=== PATIENT | male | born 1960 | race Caucasian/White ===

== ENCOUNTER 2020-01-14 21:12 | Emergency (ER) | payer MEDICARE, MEDICAID, SELFPAY ==
--- NOTE | ~2020-01-14 | CT_ITS ---
EXAMINATION: CT abd pelvis lumbar wo con DATE: 01/15/2020 01:07 INDICATION: Hematuria. Back pain. TECHNIQUE: Computed tomography (CT) of the abdomen and pelvis was performed without intravenous contr ast. Automated exposure control and iterative reconstruction technique were employed. The dose-length product was 908.18 mGy-cm. COMPARISON: 04/14/2019 FINDINGS: Abdomen/pelvis: Minimal dependent atelectasis in the bilateral lower lobes. Heart size is normal. Atherosclerotic cor onary artery calcifications. No pericardial or pleural effusion. Liver, gallbladder, spleen, pancreas and bilateral adrenal glands are normal. Kidneys and ureters are normal with no urolithiasis, hydrou reteronephrosis or perinephric/ureteral stranding. There are a few scattered colonic diverticula with out adjacent inflammatory change to suggest diverticulitis. No abnormal bowel wall thickening or obst ruction. Large amount of stool in the proximal colon. Appendix is normal. Bladder is normal. There is calcified atherosclerosis of the aorta and many of the other arteries. No free intraperitoneal gas o r fluid. No pathologically enlarged abdominal or pelvic lymphadenopathy. Lumbar spine: Alignment is normal. Chronic L2 compression fracture with 20% anterior vertebral body height loss. Ch ronic large Schmorl's node along the superior endplate of L4. Inferior endplate compression fracture at L5 with 40% central vertebral body height loss which is new since the prior study. There is a rela tively recent-appearing cortical discontinuity with mild step off along the anterior vertebral body s uggesting this is relatively recent. Moderate disc height loss with vacuum phenomena at L3-L4. Small amount of vacuum phenomena at the L2-L3 and L5-S1 disc spaces. There are disc bulges at several level s resulting in central canal stenosis most prominent at L2-L3 and L3-L4 and L4-L5 where it is of mode rate severity. Moderate left and severe right facet osteoarthritis at L5-S1 resulting in mild left an d moderate right neural foraminal stenosis. Mild to moderate facet osteoarthritis with moderate neura l from stenosis on the right at L4-L5. Mild facet osteoarthritis and neural foraminal stenosis at mul tiple additional levels in the more cephalad lumbar spine on both the left and right. IMPRESSION: 1. Age-indeterminate relatively recent-appearing L5 inferior endplate compression fracture with 40% c entral vertebral body height loss. 2. No urolithiasis or acute intra-abdominal/pelvic process. Reviewed, dictated and finalized at location A. IMPRESSION: 1. Age-indeterminate relatively recent-appearing L5 inferior endplate compressi on fracture with 40% central vertebral body height loss. 2. No urolithiasis or acute intra-abdominal/pelvic process.
[2020-01-14 21:31] VITALS: BP 120/94; PULSE 89; RESP 18; TEMP 37.3; O2SAT 97
--- NOTE | 2020-01-14 22:20 | ED.BACK ---
HPI - Back Pain/Injury General Chief Complaint: Back Pain/Injury Stated Complaint: back pain Time Seen by Provider: 01/14/20 21:57 Source: patient Mode of arrival: EMS Limitations: no limitations History of Present Illness HPI Narrative: This patient is a 59 year old male who present for evaluation of mid back pain x 2 days. He states he has constant pain that is nonradiating. He takes hydrocodone 10 mg three times a day. He took his pain medication prior to arrival without improvement. He denies nausea, vomiting or abdominal pain. He denies shortness of breath or fever. He states this pain does feel similar to his chronic pain. MD elicited complaint: back pain Pertinent past history: prior back pain Timing: constant Pain scale (0-10): 10 Similar Symptoms Previously: Yes Radiation: none Exacerbating factors: movement Relieving factors: none Related Data Allergies Allergy/AdvReac Type Severity Reaction Status Date / Time No Known Allergies Allergy Unknown Unverified 04/14/19 13:37 Review of Systems Review of Systems: All systems reviewed & are unremarkable except as noted in HPI and below Constitutional: Constitutional: Denies chills and Denies fever(s) Respiratory: Respiratory: Denies cough and Denies dyspnea Gastrointestinal: Gastrointestinal: Denies abdominal pain, Reports nausea and Denies vomiting Genitourinary: Genitourinary: Denies hematuria, Denies oliguria and Denies dysuria Musculoskeletal: Musculoskeletal: Reports back pain Neurologic: Denies headache(s), Denies focal weakness, Reports numbness (chronic ) and Denies weakness PMFSH Past Medical History Medical History (Updated 01/15/20 @ 03:33 by Tonya Hodge MD) Bipolar disorder Chronic back pain Rheumatoid arthritis Family History Family History (Updated 06/17/14 @ 11:12 by DOCTOR UNKNOWN) Other Diabetes mellitus Family history of malignant neoplasm Social History Social History Smoking status: Former smoker Smoking end date: 07/04/90 Alcohol intake: never Gender identity (if verbalized by the patient): Male Exam Narrative: Exam Narrative: GENERAL: well-nourished, and in mild distress to to pain. HEAD: Normocephalic, atraumatic EYES: PERRLA and EOMI, conjunctiva clear without discharge THROAT:Mucous membranes moist, Oropharynx normal without erythema, exudate, peritonsillar swelling or fluctuance NECK: Supple, without lymphadenopathy or mass RESPIRATORY: No respiratory distress, Airway patent, Respirations non-labored, Clear to auscultation without rales, rhonchi or wheeze HEART: Regular rate and rhythm. No murmur heard. Normal peripheral pulses. ABDOMEN: Soft, nontender, nondistended, normal active bowel sounds. No masses. No rebound or guarding, No organomegaly. EXTREMITIES: No edema, normal strength with full range of motion. SKIN: Warm, dry, normal color without rash NEURO: Alert and oriented x3. CN 2-12 grossly intact. No focal deficits. PSYCH: Normal mood and affect. Course Vital Signs Vital signs: Vital Signs Temperature 99.1 F 01/14/20 21:31 Pulse Rate 89 01/14/20 21:31 Respiratory Rate 18 01/14/20 21:31 Blood Pressure 120/94 H 01/14/20 21:31 Pulse Oximetry 97 01/14/20 21:31 Temperature 98 F 01/14/20 23:12 Pulse Rate 80 01/15/20 04:03 Respiratory Rate 18 01/15/20 04:03 Blood Pressure 142/88 H 01/15/20 04:03 Pulse Oximetry 99 01/15/20 04:03 MDM - Back Pain/Injury Differential Diagnosis Differential diagnosis: Likely lumbar radiculopathy, sciatica, strain of lumbar region, renal colic, pyelonephritis, AAA and discitis Lab Data Attestation: I reviewed the patient's lab results. Result diagrams: 01/14/20 22:30 01/14/20 22:30 Labs: Lab Results 01/14/20 01/14/20 01/14/20 Range/Units 22:30 22:30 22:30 WBC 14.5 H (4.5-10.0) K/mm3 RBC 4.51 L (4.6-6.20) M/mm3 Hgb 14.9 (14.0-18.0) g/dL Hct 42.5
[2020-01-14] MEDS: ONDANSETRON HCL ODT 4 MG TABLET PO (22:24)
[2020-01-14 22:36] LABS: Basophils Percent Auto 0.2 % (0.2-1.2); Eosinophils Absolute Auto 0.1 K/mm3 (0-0.3); Eosinophils Percent Auto 0.3 % (0-4.4); Hematocrit 42.5 % (42.0-52.0); Hemoglobin 14.9 g/dL (14.0-18.0); Immature Granulocyte Absolute 0.18 K/mm3 (0.00-0.031); Immature Granulocyte Percent A 1.2 % (0-0.5); Lymphocytes Absolute Auto 1.86 K/mm3 (0.9-3.2); Lymphocytes Percent Auto 12.8 % (18.3-44.2); Mean Corpuscular HGB Conc 35.1 g/dl (32-36); Mean Corpuscular Volume 94.2 fl (80-100); Mean Platelet Volume 10.2 fl (7.4-10.4); Monocytes Absolute Auto 1.2 K/mm3 (0.1-0.6); Monocytes Percent Auto 8.1 % (2.6-8.5); Neutrophils Absolute Auto 11.2 K/mm3 (1.3-6.7); Neutrophils Percent Auto 77.4 % (45.5-73.1); Platelet Count Result 196 k/mm3 (150-375); Red Blood Count 4.51 M/mm3 (4.6-6.20); Red Cell Distribution Width 12.1 % (11.5-14.5); White Blood Count 14.5 K/mm3 (4.5-10.0)
[2020-01-14 23:06] LABS: Lipase 12 U/L (23-300)
[2020-01-14 23:08] LABS: Alanine Aminotransferase 27 U/L (4-50); Albumin Level 4.3 g/dL (3.5-5.1); Alkaline Phosphatase 73 U/L (38-126); Aspartate Amino Transferase 45 U/L (17-59); Blood Urea Nitrogen 20 mg/dL (9-20); Calcium 9.4 mg/dL (8.4-10.2); Carbon Dioxide 24 mmol/L (22-30); Chloride 103 mmol/L (98-107); Estimated Glomerular Filt Rate > 60; Glucose 76 mg/dL (75-110); Potassium 3.8 mmol/L (3.4-5.0); Sodium 136 mmol/L (137-145)
[2020-01-14 23:12] VITALS: BP 123/92; PULSE 100; RESP 16; TEMP 36.6; O2SAT 96
[2020-01-14 23:52] LABS: Add Urine Microscopic? YES; Appearance Urine Clear (Clear); Bacteria Urine Trace /hpf; Bilirubin Urine 1+ (Negative); Blood Urine 2+ (Negative); Glucose Urine UA Negative (Negative); Hyaline Casts Urine 15-19 /lpf; Ketones Urine 1+ mg/dL (Negative); Leukocyte Esterase Ur Negative LEU/UL (Negative); Mucus Urine Heavy /lpf; Nitrate Urine Negative (Negative); Protein Urine 1+ mg/dL (Negative); RBC Urine 21-50 /hpf (0-2); Squamous Epithelial Cell Urine Occasional /hpf (Few); Urobilinogen Urine Negative mg/dL (<2.0)
[2020-01-14 23:55] LABS: Color Urine Dark Yellow (Yellow); Specific Grav Ur 1.033 (1.001-1.035)
[2020-01-15 01:30] VITALS: BP 126/72
[2020-01-15] MEDS: KETOROLAC 30 MG/ML VIAL (*BKC) IV PUSH (02:41)
[2020-01-15 02:43] VITALS: BP 144/110; PULSE 107; RESP 22; O2SAT 97
[2020-01-15 04:03] VITALS: BP 142/88; PULSE 80; RESP 18; O2SAT 99
== END 2020-01-15 04:04 | disposition home or self-care (01) ==
PROVIDERS: Emergency Provider General Practice; PCP Family Medicine
DX: G89.29 Other chronic pain (principal); M06.9 Rheumatoid arthritis, unspecified; Z87.891 Personal history of nicotine dependence; M54.5 Low back pain
CPT/HCPCS: 36415; 72133; 74176; 80053; 81001; 83690; 85025; 96372; 96374; 99284; A9270; J1170; J1885

== ENCOUNTER 2020-01-16 07:43 | Inpatient (IN) | payer MEDICARE, SELFPAY ==
[2020-01-16] VITALS (9 sets, daily range): BP systolic 119–159; BP diastolic 66–110; PULSE 88–132; RESP 18–27; TEMP 36.2–38.1; O2SAT 94–99
--- NOTE | ~2020-01-16 | CT_ITS ---
EXAMINATION: CT brain wo con DATE: 01/16/2020 11:08 INDICATION: Altered mental status TECHNIQUE: Computed tomography (CT) of the head was performed without intravenous contrast. The dose- length product was 681.00 mGy-cm. The mA was adjusted according to patient size. Iterative reconstruc tion technique was employed. COMPARISON: CT dated 04/09/2019 FINDINGS: Study limited by motion artifact. Mild atrophy. There are scattered mild periventricular an d subcortical white matter changes, most likely related to small vessel ischemic disease (microangiop athy). No ventriculomegaly or midline shift. Basilar cisterns patent. Paranasal sinuses are unremarka ble. IMPRESSION: 1. No acute intracranial abnormality. Limited study. Reviewed, dictated and finalized at location B.
--- NOTE | ~2020-01-16 | XR_ITS ---
XR chest 1V portable 01/16/2020 10:40 Indication: Transient alteration of awareness Procedure: AP portable chest Comparison: 04/14/2019 Findings: Crowding of the pulmonary vasculature. No focal pneumonia, edema or effusion. No acute osse ous abnormality. Heart size normal for technique. There is ectasia of the aorta. Impression: 1: No acute cardiopulmonary disease. Reviewed, dictated and finalized at location B. Impression: 1: No acute cardiopulmonary disease.
--- NOTE | ~2020-01-16 | US_ITS ---
US right upper quadrant INDICATION: Severe back pain. Elevated liver function tests. PROCEDURE: Realtime right upper abdominal ultrasound. COMPARISON: CT dated 01/15/2020 FINDINGS: The pancreas is normal without focal mass or pancreatic ductal dilation. Liver echotexture is normal without focal mass or intrahepatic biliary dilatation. There is normal directional flow i n the portal vein. There is gallbladder sludge with mild gallbladder wall thickening. Common bile duct measures 4.5 mm. No sonographic Garcia's sign. IMPRESSION: 1: Gallbladder sludge with mild gallbladder wall thickening. Consider acalculous cholecystitis. Reviewed, dictated and finalized at location B. IMPRESSION: 1: Gallbladder sludge with mild gallbladder wall thickening. Consider acalculou s cholecystitis.
--- NOTE | 2020-01-16 07:46 | ECG_ITS ---
Measurements Intervals [place] Rate: 127 P: 85 WV: 133 QRS: -66 QRSD: 73 T: 66 QT: 332 QTc: 483 Interpretive Statements SINUS TACHYCARDIA LEFT ANTERIOR FASCICULAR BLOCK BORDERLINE ST-T WAVE ABNORMALITY- HIGH LATERAL LEADS BASELINE ARTIFACT- I, III, AVR, AVL, AVF, V1-V6 ABNORMAL ECG Electronically Signed On 01-16-2020 12:10:22 CDT by Charanjit Leslie D.O.
--- NOTE | 2020-01-16 07:52 | ED.AMS ---
HPI - Altered Mental Status General Chief Complaint: Altered Mental Status Stated Complaint: AMS Source: RN notes reviewed and old records reviewed History of Present Illness HPI narrative: Patient presents emergency department from home via EMS for altered mental status. History is per family that is present. Per the family the patient has a history of bipolar and rheumatoid arthritis but they do not believe that he has been taking his bipolar medication. They state that the patient been seen in the emergency department 2 days ago for back pain and then walked home at that time. States that they come over and the patient just been sitting outside of his house and they had had to break into his house to unlock the doors to get the patient side. States they got the patient inside and came back to check on him today and found him lying on the floor that called EMS. Patient is able to tell me his name but gives no other history. He has no complaints at this time. When EMS initially arrived she was noted of blood sugar 59 and given glucagon with sugars improved. No recent illness per the family. Related Data Home Medications Medication Instructions Recorded Confirmed acetaminophen-codeine 1 tablet PO PRN PRN 01/16/20 01/16/20 aripiprazole 2 mg PO HS 01/16/20 aripiprazole 5 mg PO HS 01/16/20 bupropion HCl 300 mg PO DAILY 01/16/20 hydrocodone-acetaminophen 1 tablet PO PRN PRN 01/16/20 lamotrigine 200 mg PO BID 01/16/20 01/16/20 pantoprazole [Protonix] 40 mg PO QAM 01/16/20 01/16/20 quetiapine 25 mg PO HS 01/16/20 01/16/20 Allergies Allergy/AdvReac Type Severity Reaction Status Date / Time No Known Allergies Allergy Unknown Verified 01/16/20 08:11 Review of Systems Review of Systems: Narrative: Gen.: Denies fevers or chills Eyes: Denies eye pain or visual change ENT: Denies congestion Respiratory: Denies shortness of breath or cough CV: Denies chest pain or palpitations GI: Denies abdominal pain nausea, emesis or diarrhea denies burning, urgency, frequency or hematuria Musculoskeletal: Denies back pain or muscle pain Neuro: See HPI Skin: Denies rash Except as documented, all other systems reviewed and negative PMFSH Past Medical History Medical History Bipolar disorder Chronic back pain Rheumatoid arthritis Family History Family History (Updated 06/17/14 @ 11:12 by DOCTOR UNKNOWN) Other Diabetes mellitus Family history of malignant neoplasm Social History Social History Smoking status: Never smoker Second hand tobacco smoke exposure: No Smoking end date: 07/04/90 Alcohol intake: unknown Substance use: unknown Gender identity (if verbalized by the patient): Male Sexual Orientation (if Verbalized by the Patient): Straight or Heterosexual Spiritual care concerns: No Exam Narrative: Exam Narrative: APPEARANCE: No acute distress, nontoxic, resting in bed EYES: PERRL HEENT: Normocephalic, atraumatic, OMM Neck: Supple, full range of motion without pain, no managements RESPIRATORY: No respiratory distress Clear to auscultation bilaterally with no rhonchi wheezing or rales. CARDIOVASCULAR: Regular rate and rhythm without murmurs rubs or gallops. ABDOMINAL: Soft, nontender, nondistended, no rebound or guarding MUSCULOSKELETAl: Moves all extremities. No clubbing, cyanosis or edema. Numerous areas of ecchymosis healing in different phrases on bilateral lower extremities NEURO: Awake and alert x 1. Following commands, speech normal, no focal deficits SKIN:: Warm, dry. No rashes lesions or abrasions Course Course Emergency Course: Reviewed old records. Patient had similar episode 2018 at that time he been admitted baclofen and pain medications have been held with improvement of his neurologic status. Patient continues to attempt to get up and out of bed. Initially given Ativan wi
[2020-01-16 08:06] LABS: Basophils Absolute Auto 0.1 K/mm3 (0.0-0.1); Basophils Percent Auto 0.4 % (0.2-1.2); Eosinophils Percent Auto 0.1 % (0-4.4); Hematocrit 47.5 % (42.0-52.0); Hemoglobin 16.7 g/dL (14.0-18.0); Immature Granulocyte Percent A 0.6 % (0-0.5); Lymphocytes Absolute Auto 0.87 K/mm3 (0.9-3.2); Lymphocytes Percent Auto 5.5 % (18.3-44.2); Mean Corpuscular HGB Conc 35.2 g/dl (32-36); Mean Corpuscular Hemoglobin 33.1 pg (26-34); Mean Corpuscular Volume 94.2 fl (80-100); Mean Platelet Volume 11.2 fl (7.4-10.4); Monocytes Absolute Auto 1.5 K/mm3 (0.1-0.6); Monocytes Percent Auto 9.7 % (2.6-8.5); Neutrophils Absolute Auto 13.2 K/mm3 (1.3-6.7); Neutrophils Percent Auto 83.7 % (45.5-73.1); Platelet Count Result 216 k/mm3 (150-375); Red Blood Count 5.04 M/mm3 (4.6-6.20); Red Cell Distribution Width 12.3 % (11.5-14.5); White Blood Count 15.8 K/mm3 (4.5-10.0)
[2020-01-16 08:17] LABS: INR 1.2; Partial Thromboplastin Time 25.2 SECONDS (22.3-36.8); Prothrombin Time 14.5 Seconds (11.1-14.7)
[2020-01-16 08:19] LABS: Alanine Aminotransferase 49 U/L (4-50); Albumin Level 4.7 g/dL (3.5-5.1); Alkaline Phosphatase 88 U/L (38-126); Aspartate Amino Transferase 106 U/L (17-59); Bilirubin,Total 1.7 mg/dL (0.2-1.3); Blood Urea Nitrogen 39 mg/dL (9-20); Calcium 10.1 mg/dL (8.4-10.2); Carbon Dioxide 19 mmol/L (22-30); Chloride 111 mmol/L (98-107); Estimated Glomerular Filt Rate 52; Glucose 112 mg/dL (75-110); Potassium 3.8 mmol/L (3.4-5.0); Sodium 147 mmol/L (137-145)
--- NOTE | 2020-01-16 08:29 | PC.NURSE ---
Per EDP give 1MG Ativan IVP due to pt trying to get up from stretcher, uncooperative, kicking in air, rolling. Unable to obtain EKG at this time. Pt pulling off tele leads. Cont to thrash in stretcher. Sitter at bedside to ensure pt safety.
--- NOTE | 2020-01-16 08:30 | PC.NURSE ---
Unable to initiate ordered NS at this time, pt pulling at tubes, leads. Pt given medication IVP for agitation.
[2020-01-16 08:41] LABS: Creatine Kinase 2873 U/L (55-170)
[2020-01-16 08:59] LABS: Add Urine Microscopic? YES; Appearance Urine Cloudy (Clear); Bacteria Urine 4+ /hpf; Bilirubin Urine 1+ (Negative); Blood Urine 3+ (Negative); Color Urine Amber (Yellow); Glucose Urine UA Negative (Negative); Hyaline Casts Urine 15-19 /lpf; Ketones Urine 2+ mg/dL (Negative); Leukocyte Esterase Ur Negative LEU/UL (Negative); Mucus Urine Heavy /lpf; Nitrate Urine Negative (Negative); Protein Urine 3+ mg/dL (Negative); Specific Grav Ur 1.027 (1.001-1.035); Squamous Epithelial Cell Urine Rare /hpf (Few); WBC Urine 0-3 /hpf
--- NOTE | 2020-01-16 09:06 | PC.NURSE ---
Lab in room for blood draw.
[2020-01-16 09:09] LABS: Ethanol < 10 mg/dL (<10)
--- NOTE | 2020-01-16 09:09 | PC.NURSE ---
Pt continues to trash in stretcher, unable to redirect. Sitter at bedside.
[2020-01-16 09:26] LABS: Amphetamine Screen Urine Negative (Negative); Barbiturate Screen Urine Negative (Negative); Benzodiazepines Screen Urine Positive (Negative); Cannabinoid Screen Urine Positive (Negative); Cocaine Screen Urine Negative (Negative); Methadone Screen Urine Negative (Negative); Opiate Screen Urine Positive (Negative); Phencyclidine Screen Urine Negative (Negative)
[2020-01-16 09:30] LABS: Lactic Acid Reflex 2.2 mmol/L (0.7-2.1)
[2020-01-16] MEDS: HALOPERIDOL LACTATE 5 MG/ML VIAL IM (09:36)
[2020-01-16] MEDS: SODIUM CHLORIDE 0.9% IV 1,000 ML 999 ML IV CONT ×2 (09:38)
--- NOTE | 2020-01-16 09:38 | PC.NURSE ---
Pt thrashing and removed IV in R wrist, pt bleeding, moving in sheets, uncooperative, pulling staff, attempting to bite, restless. Pt held down by cleaner wall and two tech staff while this RN placed 18 L forearm w/ fluids infusing. Pt gown changed, sheets changed, lights dimmed. Sitter remains at bedside.
--- NOTE | 2020-01-16 10:16 | PC.NURSE ---
Pt continues to thrash in stretcher, gown put on mult times, put depends on due to other depends sliding off (dry). Pt re oriented. Pt continues to grab and pick at staff. Repositioned, given 1 Lorazepam IVP per [facility] EDP. Fluids cont to infuse.
--- NOTE | 2020-01-16 11:07 | PC.NURSE ---
Pt taken to CT scan via stretcher w/ RN, Tech, and two it technical architect in assist. Pt uncooperative, tearing off gown, continues to be restless and trash in stretcher.
[2020-01-16 12:14] LABS: Reflex Lactic Acid Yes or No Add Lactic
--- NOTE | 2020-01-16 12:56 | PC.NURSE ---
Pt cont. to get out of bed, pt shouting no, please. Pt held down onto stretcher, cont. redirection. Pt tries to climb out of bed, sticks legs in side rails. Repositioned. New gown placed. Lights dimmed. Sitter at bedside.
[2020-01-16 13:21] LABS: Acetaminophen < 10 ug/mL (10-30)
[2020-01-16 14:14] LABS: Lactic Acid 1.2 mmol/L (0.7-2.1)
[2020-01-16] MEDS: SODIUM BICARBONATE 8.4% 100 MEQ in DEXTROSE 5% 1,000 ML 1,000 ML 150 ML IV CONT (17:49)
[2020-01-16 18:47] LABS: Blood Urea Nitrogen 32 mg/dL (9-20); Calcium 8.7 mg/dL (8.4-10.2); Carbon Dioxide 16 mmol/L (22-30); Chloride 117 mmol/L (98-107); Estimated CRCL calculation 69 ml/min; Estimated Glomerular Filt Rate > 60; Glucose 104 mg/dL (75-110); Magnesium 2.3 mg/dL (1.6-2.3); Potassium 3.9 mmol/L (3.4-5.0); Sodium 148 mmol/L (137-145)
[2020-01-16 19:03] LABS: Creatine Kinase 8382 U/L (55-170)
--- NOTE | 2020-01-16 20:49 | PM.IMHP ---
H&P: HPI History of Present Illness Chief complaint: Fall, altered mental status Narrative: Date and time of patient contact: 01/16/2020 at 9:00 p.m. Kevin Hernandez is a 59 year old male with a past medical history of bipolar disorder, peripheral neuropathy and rheumatoid arthritis who presented to the ER via EMS from home for altered mental status. Source of information is past medical records and ER records. The patient's family reported to the ER staff that they do not believe that he has been taking his bipolar medication. They state that the patient been seen in the emergency department 2 days ago for back pain and was diagnosed with age indeterminate relatively recent appearing L5 anterior endplate compression fracture with 40% central vertebral body loss. He was discharged from the ER and then walked home at that time. The family had went over to his house and found him sitting outside. They had to break into his house to get him inside. They left him at home alone when they came back to check on him on the they found him lying on the floor that called EMS. The patient was able to status name both in the ER and at the time of my evaluation. Otherwise he could give me no history except for he kept asking for his Klonopin. The patient denies having any pain. The patient is covered and multiple skin tears. He was very agitated at the time of my evaluation and flipping around in the bed. The patient's stool smeared all over his bed. Staff was not able to redirect the patient. The patient had multiple areas of bruising/skin changes. The skin lesions appear to be all in the same stage of healing which would be unusual for simple bruising. Patient has been afebrile since presentation When EMS initially arrived she was noted of blood sugar 59 and given glucagon with sugars improved. No recent illness per the family. Review of Systems Review of Systems: ROS unobtainable: Yes unobtainable due to medical condition and unobtainable due to mental status [facility] Past Medical History Medical History (Updated 01/17/20 @ 04:52 by Radha Brown DO) Bipolar disorder Chronic back pain Hyperlipidemia L1 vertebral fracture April 2019 Peripheral neuropathy PTSD (post-traumatic stress disorder) Rheumatoid arthritis Surgical History Surgical History (Updated 01/16/20 @ 20:53 by Radha Brown DO) History of facial surgery History of herniorrhaphy Family History Family History (Updated 01/16/20 @ 20:55 by Radha Brown DO) Mother Dementia Acute myocardial infarction Sibling Diabetes mellitus Brother and sister Social History Social History (Updated 01/16/20 @ 20:57 by Radha Brown DO) Smoking status: Former smoker Smoking end date: 07/04/90 Alcohol intake: current Alcohol use details: Occasional use of alcohol per prior H&P. Substance use: current Substance use type: marijuana and opiates Living arrangements: alone Gender identity (if verbalized by the patient): Male Sexual Orientation (if Verbalized by the Patient): Straight or Heterosexual Spiritual care concerns: No Meds Home Medications and Allergies Home Medications Medication Instructions Recorded Confirmed Type acetaminophen-codeine 1 tablet PO PRN PRN 01/16/20 01/16/20 History aripiprazole 2 mg PO HS 01/16/20 History aripiprazole 5 mg PO HS 01/16/20 History bupropion HCl 300 mg PO DAILY 01/16/20 History hydrocodone-acetaminophen 1 tablet PO PRN PRN 01/16/20 History lamotrigine 200 mg PO BID 01/16/20 01/16/20 History pantoprazole [Protonix] 40 mg PO QAM 01/16/20 01/16/20 History quetiapine 25 mg PO HS 01/16/20 01/16/20 History Allergies Allergy/AdvReac Type Severity Reaction Status Date / Time No Known Allergies Allergy Unknown Verified 01/16/20 08:11 Vital Signs Vital Signs - 24 hr 01/16/20 08:18 01/16/20 08:58 01/16/20 10:17 Temperature 97.1 F L Pulse Rate 132 H 109 H 117 H
[2020-01-16] MEDS: OLANZapine 10 MG INJ VIAL 5 MG IM (21:59)
[2020-01-17 01:59] LABS: Glucose Point of Care 106 (65-105)
[2020-01-17 06:00] VITALS: BP 142/86; PULSE 103; RESP 20; TEMP 37.2; O2SAT 98
[2020-01-17 06:33] LABS: Basophils Absolute Auto 0.1 K/mm3 (0.0-0.1); Basophils Percent Auto 0.4 % (0.2-1.2); Eosinophils Percent Auto 0.1 % (0-4.4); Hematocrit 41.3 % (42.0-52.0); Hemoglobin 14.4 g/dL (14.0-18.0); Immature Granulocyte Absolute 0.08 K/mm3 (0.00-0.031); Immature Granulocyte Percent A 0.6 % (0-0.5); Lymphocytes Absolute Auto 0.91 K/mm3 (0.9-3.2); Lymphocytes Percent Auto 7.1 % (18.3-44.2); Mean Corpuscular HGB Conc 34.9 g/dl (32-36); Mean Corpuscular Hemoglobin 32.7 pg (26-34); Mean Corpuscular Volume 93.7 fl (80-100); Monocytes Absolute Auto 1.1 K/mm3 (0.1-0.6); Monocytes Percent Auto 8.4 % (2.6-8.5); Neutrophils Absolute Auto 10.8 K/mm3 (1.3-6.7); Neutrophils Percent Auto 83.4 % (45.5-73.1); Platelet Count Result 193 k/mm3 (150-375); Red Blood Count 4.41 M/mm3 (4.6-6.20); Red Cell Distribution Width 12.1 % (11.5-14.5); White Blood Count 12.9 K/mm3 (4.5-10.0)
[2020-01-17 06:49] LABS: Alanine Aminotransferase 92 U/L (4-50); Albumin Level 3.9 g/dL (3.5-5.1); Alkaline Phosphatase 66 U/L (38-126); Aspartate Amino Transferase 295 U/L (17-59); Bilirubin,Total 1.6 mg/dL (0.2-1.3); Blood Urea Nitrogen 31 mg/dL (9-20); Carbon Dioxide 24 mmol/L (22-30); Chloride 114 mmol/L (98-107); Estimated CRCL calculation 84 ml/min; Estimated Glomerular Filt Rate > 60; Glucose 117 mg/dL (75-110); Potassium 3.8 mmol/L (3.4-5.0); Sodium 148 mmol/L (137-145)
[2020-01-17 08:05] LABS: Creatine Kinase 14333 U/L (55-170)
[2020-01-17 09:33] LABS: HAV RESULT Negative (Negative); Hepatitis B Core IgM Result Negative (Negative); Hepatitis B Surface Antigen Negative (Negative)
[2020-01-17 09:43] LABS: Hepatitis C Virus Antibody Negative (Negative)
--- NOTE | 2020-01-17 10:18 | PC.NURSE ---
Contacted Joesph Saucedo of patient in pain. Earline to look at patient meds.
[2020-01-17] MEDS: buPROPion HCL XL (24 HR) 150 MG TABCR 300 MG PO (12:44)
[2020-01-17] MEDS: PANTOPRAZOLE 40 MG TABLET PO (12:44)
[2020-01-17 14:00] VITALS: BP 137/90; PULSE 90; RESP 18; TEMP 36.7; O2SAT 98
[2020-01-17 15:03] LABS: Glucose Point of Care 103 (65-105)
--- NOTE | 2020-01-17 16:30 | PM.IMPN ---
Progress Note: A&P Assessment and Plan (1) Acute metabolic encephalopathy: Code(s): G93.41 - Metabolic encephalopathy Status: Acute Assessment and Plan: Acute metabolic encephalopathy complicating the patient's underlying bipolar disorder with likely non adherence to medical therapy. Patient appears to have improved in his orientation today. Fever his resolved. UTI possibly causing AMS as well; UCx pending. Patient does have a mildly elevated temperature of 100.5?. He has 4+ bacteria in his urine. Will continue to treat empirically with Rocephin pending cultures Patient passed his swallow study; resume home medications Monitor (2) Acute renal failure: Code(s): N17.9 - Acute kidney failure, unspecified Status: Acute Assessment and Plan: Will continue bicarb drip. This has improved to Cr of 0.80 this morning Repeat BMP this evening then tomorrow Monitor urine output. (3) Rhabdomyolysis: Code(s): M62.82 - Rhabdomyolysis Status: Acute Assessment and Plan: CK has increased this morning to >14k Continue bicarb drip; consider increasing Will monitor serial CK values. (4) Acute hypernatremia: Code(s): E87.0 - Hyperosmolality and hypernatremia Status: Acute Assessment and Plan: Likely due to hypovolemia. Serial BMPs have been ordered. Na stable at 148 Patient is on a bicarb drip. Serial BMPs have been ordered. Monitor (5) Metabolic acidosis: Code(s): E87.2 - Acidosis Status: Acute Assessment and Plan: Improving. Likely due to rhabdomyolysis. Monitor lab values (6) Bipolar disorder: Code(s): F31.9 - Bipolar disorder, unspecified Status: Acute Assessment and Plan: With possible acute manic phase. Home meds have been resumed Patient asking about a home Klonopin, will have nursing check this home medication Subjective Date/time seen: 01/17/20 16:30 Interval history: Patient is a 59 yo M with history of bipolar disorder, peripheral neuropathy and rheumatoid arthritis who is here for evaluation and treatment of AMS, LILIANA, and rhabdomyolysis. Patient states his main complaint is his chronic back pain. Patient also notes some muscle aches and pains as well. He is A&Ox3 for me and is able to recount what brought him to the hospital; confused at times. Tells me he was hurting and and laid down on the ground for awhile . He reports some dark urine. No other complaints at this time. Denies f/c/s, headaches, dizziness, lightheadedness, cp/palpitations, sob/cough, n/v/d/c, abd pain, changes in BMs, dysuria, hematuria, calf pain/swelling. Review of Systems Review of Systems: All systems reviewed & are unremarkable except as noted in HPI and below Exam Narrative: Exam Narrative: Patient lying supine in bed at time of visit Const: General: cooperative, comfortable, no acute distress, well developed, alert and awake Nutritional Appearance: well nourished Orientation/consciousness: patient oriented x3 HENMT: Head: normocephalic and atraumatic General nose exam: Normal nares present Face and sinus: face symmetric Eyes: General: appearance normal, both eyes and all related structures EOM: EOMs intact bilaterally Neck: Neck: trachea midline and supple Resp: Effort & Inspection: normal respiratory effort Auscultation: clear to auscultation bilaterally Cardio: Rate: regular rate Rhythm: regular rhythm Heart sounds: no murmurs GI: Inspection: non-distended GI Palp: No abdominal tenderness and Yes Soft to palpation Auscultation: normal bowel sounds and Hypoactive bowel sounds present Skin: Other: Multiple ecchymoses noted over b/l UE/LE Neuro: General: patient oriented x3, moves al
[2020-01-17 17:47] LABS: Blood Urea Nitrogen 26 mg/dL (9-20); Calcium 8.3 mg/dL (8.4-10.2); Carbon Dioxide 27 mmol/L (22-30); Chloride 106 mmol/L (98-107); Estimated CRCL calculation 110 ml/min; Estimated Glomerular Filt Rate > 60; Glucose 118 mg/dL (75-110); Sodium 139 mmol/L (137-145)
[2020-01-17 17:53] LABS: Creatine Kinase 11436 U/L (55-170)
[2020-01-17] MEDS: lamoTRIgine 100 MG TABLET 200 MG PO (18:00)
[2020-01-17] MEDS: predniSONE 5 MG TABLET PO (18:01)
[2020-01-17] MEDS: BACLOFEN 10 MG TABLET 20 MG BY MOUTH (18:01)
[2020-01-17] MEDS: SODIUM BICARBONATE 8.4% 100 MEQ in DEXTROSE 5% 1,000 ML 1,000 ML 150 ML IV CONT (18:29)
[2020-01-17 20:00] VITALS: PULSE 90; RESP 18; O2SAT 98
[2020-01-17] MEDS: ARIPiprazole 5 MG TABLET PO (20:22)
[2020-01-17] MEDS: QUEtiapine FUMARATE 25 MG TABLET PO (20:22)
[2020-01-17 22:00] VITALS: BP 116/73; PULSE 93; RESP 16; TEMP 36.7; O2SAT 94
[2020-01-18] MEDS: SODIUM BICARBONATE 8.4% 100 MEQ in DEXTROSE 5% 1,000 ML 1,000 ML 150 ML IV CONT (00:57)
[2020-01-18 06:00] VITALS: BP 105/63; PULSE 85; RESP 16; TEMP 36.7; O2SAT 91
[2020-01-18 06:36] LABS: Basophils Percent Auto 0.3 % (0.2-1.2); Eosinophils Absolute Auto 0.1 K/mm3 (0-0.3); Eosinophils Percent Auto 1.4 % (0-4.4); Hematocrit 36.3 % (42.0-52.0); Hemoglobin 12.9 g/dL (14.0-18.0); Immature Granulocyte Absolute 0.04 K/mm3 (0.00-0.031); Immature Granulocyte Percent A 0.4 % (0-0.5); Lymphocytes Absolute Auto 1.16 K/mm3 (0.9-3.2); Mean Corpuscular HGB Conc 35.5 g/dl (32-36); Mean Corpuscular Hemoglobin 33.3 pg (26-34); Mean Corpuscular Volume 93.8 fl (80-100); Mean Platelet Volume 11.1 fl (7.4-10.4); Monocytes Absolute Auto 0.6 K/mm3 (0.1-0.6); Monocytes Percent Auto 5.8 % (2.6-8.5); Neutrophils Absolute Auto 7.8 K/mm3 (1.3-6.7); Neutrophils Percent Auto 80.1 % (45.5-73.1); Platelet Count Result 153 k/mm3 (150-375); Red Blood Count 3.87 M/mm3 (4.6-6.20); Red Cell Distribution Width 12.2 % (11.5-14.5); White Blood Count 9.7 K/mm3 (4.5-10.0)
[2020-01-18 07:04] LABS: Alanine Aminotransferase 99 U/L (4-50); Alkaline Phosphatase 58 U/L (38-126); Aspartate Amino Transferase 185 U/L (17-59); Blood Urea Nitrogen 14 mg/dL (9-20); Calcium 7.8 mg/dL (8.4-10.2); Carbon Dioxide 36 mmol/L (22-30); Chloride 100 mmol/L (98-107); Estimated CRCL calculation 110 ml/min; Estimated Glomerular Filt Rate > 60; Glucose 107 mg/dL (75-110); Magnesium 2.3 mg/dL (1.6-2.3); Potassium 2.7 mmol/L (3.4-5.0); Sodium 137 mmol/L (137-145)
[2020-01-18 07:56] LABS: Glucose Point of Care 103 (65-105)
[2020-01-18 08:00] LABS: Creatine Kinase 6370 U/L (55-170)
[2020-01-18] MEDS: predniSONE 5 MG TABLET PO ×3 (08:54→16:28)
[2020-01-18] MEDS: buPROPion HCL XL (24 HR) 150 MG TABCR 300 MG PO (08:55)
[2020-01-18] MEDS: BACLOFEN 10 MG TABLET 20 MG BY MOUTH ×3 (08:55→16:28)
[2020-01-18] MEDS: lamoTRIgine 100 MG TABLET 200 MG PO ×2 (08:57→16:28)
[2020-01-18] MEDS: MORPHINE SULFATE 2 MG/ML INJ 1 MG IV PUSH ×3 (09:55→22:48)
--- NOTE | 2020-01-18 11:14 | PCPTNOTE ---
Pt refused transfers, gait and exercises due to c/o pain in low back. PT will continue to follow per plan of care.
[2020-01-18] MEDS: POTASSIUM CHLORIDE 20 MEQ TABLET 40 MEQ PO ×2 (12:40)
[2020-01-18] MEDS: clonazePAM 0.5 MG TABLET 1 MG PO (12:41)
[2020-01-18] MEDS: PANTOPRAZOLE 40 MG TABLET PO (12:45)
[2020-01-18 13:15] LABS: Alanine Aminotransferase 111 U/L (4-50); Albumin Level 3.2 g/dL (3.5-5.1); Alkaline Phosphatase 66 U/L (38-126); Aspartate Amino Transferase 188 U/L (17-59); Bilirubin,Total 1.1 mg/dL (0.2-1.3); Blood Urea Nitrogen 14 mg/dL (9-20); Calcium 8.1 mg/dL (8.4-10.2); Carbon Dioxide 34 mmol/L (22-30); Chloride 100 mmol/L (98-107); Estimated CRCL calculation 95 ml/min; Estimated Glomerular Filt Rate > 60; Glucose 110 mg/dL (75-110); Potassium 3.4 mmol/L (3.4-5.0); Sodium 137 mmol/L (137-145)
[2020-01-18 13:57] LABS: Creatine Kinase 4782 U/L (55-170)
--- NOTE | 2020-01-18 15:28 | PM.IMPN ---
Progress Note: A&P Assessment and Plan (1) Acute metabolic encephalopathy: Code(s): G93.41 - Metabolic encephalopathy Status: Acute Assessment and Plan: Acute metabolic encephalopathy complicating the patient's underlying bipolar disorder with likely non adherence to medical therapy. This appears to have resolved as he is more conversive and A&Ox4 for me today. Fever his resolved. UCx negative. Patient did have a mildly elevated temperature of 100.5? earlier in stay Will d/c Rocephin (3 doses given) Patient passed his swallow study; resume home medications Monitor (2) Acute renal failure: Code(s): N17.9 - Acute kidney failure, unspecified Status: Acute Assessment and Plan: Will continue bicarb drip. This has improved to Cr of 0.70 this morning Repeat BMP tomorrow Monitor urine output. (3) Rhabdomyolysis: Code(s): M62.82 - Rhabdomyolysis Status: Acute Assessment and Plan: CK has decreased to <5k this afternoon Continue bicarb drip Will monitor CK tomorrow Consider discharge in next few days pending CK values (4) Acute hypernatremia: Code(s): E87.0 - Hyperosmolality and hypernatremia Status: Acute Assessment and Plan: Likely due to hypovolemia. Na now WNL Patient is on a bicarb drip. BMP tomorrow (5) Metabolic acidosis: Code(s): E87.2 - Acidosis Status: Acute Assessment and Plan: Improving. Likely due to rhabdomyolysis. Monitor lab values (6) Bipolar disorder: Code(s): F31.9 - Bipolar disorder, unspecified Status: Acute Assessment and Plan: With possible acute manic phase. Home meds have been resumed Patient asking about a home Klonopin, will have nursing check this home medication (7) Hypokalemia: Code(s): E87.6 - Hypokalemia Status: Acute Assessment and Plan: K was 2.7 this morning; replaced. Up to 3.4 this afternoon Monitor closely Replace as needed Subjective Date/time seen: 01/18/20 15:28 Interval history: Patient is a 59 yo M with history of bipolar disorder, peripheral neuropathy and rheumatoid arthritis who is here for evaluation and treatment of AMS, LILIANA, and rhabdomyolysis. Patient states his main complaint is his weakness and chronic pain. Otherwise has been feeling okay. He thinks his urine is clearing up. No other complaints at this time. Denies f/c/s, headaches, dizziness, lightheadedness, cp/palpitations, sob/cough, n/v/d/c, abd pain, changes in BMs, dysuria, hematuria, calf pain/swelling. Review of Systems Review of Systems: All systems reviewed & are unremarkable except as noted in HPI and below Exam Narrative: Exam Narrative: Patient lying supine in bed at time of visit Const: General: cooperative, comfortable, no acute distress, well developed, alert and awake Nutritional Appearance: well nourished Orientation/consciousness: patient oriented x3 HENMT: Head: normocephalic and atraumatic General nose exam: Normal nares present Face and sinus: face symmetric Eyes: General: appearance normal, both eyes and all related structures EOM: EOMs intact bilaterally Neck: Neck: trachea midline and supple Resp: Effort & Inspection: normal respiratory effort Auscultation: clear to auscultation bilaterally Cardio: Rate: regular rate Rhythm: regular rhythm Heart sounds: no murmurs GI: Inspection: non-distended GI Palp: No abdominal tenderness and Yes Soft to palpation Auscultation: normal bowel sounds Skin: Other: Multiple ecchymoses with small lacerations/scabbing noted over b/l UE/LE Neuro: General: patient oriented x3, moves all extremities and no focal motor deficits Speech: normal speech Extrem: Right lower extrem
[2020-01-18 18:44] VITALS: BP 125/70; PULSE 72; RESP 16; TEMP 37.1; O2SAT 97
[2020-01-18] MEDS: SODIUM BICARBONATE 8.4% 100 MEQ in DEXTROSE 5% 1,000 ML 1,000 ML 150 MEQ IV PUSH (18:53)
[2020-01-18] MEDS: QUEtiapine FUMARATE 25 MG TABLET PO (20:16)
[2020-01-18] MEDS: ARIPiprazole 5 MG TABLET PO (20:16)
[2020-01-18 21:27] VITALS: BP 116/84; PULSE 85; RESP 18; TEMP 37.1; O2SAT 94
[2020-01-19] MEDS: SODIUM BICARBONATE 8.4% 100 MEQ in DEXTROSE 5% 1,000 ML 1,000 ML 150 MEQ IV PUSH ×3 (02:57→20:17)
[2020-01-19] MEDS: MORPHINE SULFATE 2 MG/ML INJ 1 MG IV PUSH ×4 (03:56→23:20)
[2020-01-19 05:54] VITALS: BP 147/92; PULSE 67; RESP 18; TEMP 36.6; O2SAT 96
[2020-01-19 06:39] LABS: Basophils Percent Auto 0.2 % (0.2-1.2); Eosinophils Percent Auto 0.4 % (0-4.4); Hematocrit 35.6 % (42.0-52.0); Hemoglobin 12.3 g/dL (14.0-18.0); Immature Granulocyte Absolute 0.03 K/mm3 (0.00-0.031); Immature Granulocyte Percent A 0.4 % (0-0.5); Lymphocytes Absolute Auto 1.33 K/mm3 (0.9-3.2); Mean Corpuscular HGB Conc 34.6 g/dl (32-36); Mean Corpuscular Hemoglobin 32.5 pg (26-34); Mean Corpuscular Volume 94.2 fl (80-100); Mean Platelet Volume 11.4 fl (7.4-10.4); Monocytes Absolute Auto 0.6 K/mm3 (0.1-0.6); Monocytes Percent Auto 7.1 % (2.6-8.5); Neutrophils Absolute Auto 6.3 K/mm3 (1.3-6.7); Neutrophils Percent Auto 75.9 % (45.5-73.1); Platelet Count Result 164 k/mm3 (150-375); Red Blood Count 3.78 M/mm3 (4.6-6.20); Red Cell Distribution Width 11.9 % (11.5-14.5); White Blood Count 8.3 K/mm3 (4.5-10.0)
[2020-01-19 07:09] LABS: Alanine Aminotransferase 108 U/L (4-50); Albumin Level 3.1 g/dL (3.5-5.1); Alkaline Phosphatase 60 U/L (38-126); Aspartate Amino Transferase 121 U/L (17-59); Bilirubin,Total 0.6 mg/dL (0.2-1.3); Blood Urea Nitrogen 9 mg/dL (9-20); Calcium 8.1 mg/dL (8.4-10.2); Carbon Dioxide 36 mmol/L (22-30); Chloride 100 mmol/L (98-107); Creatine Kinase 1381 U/L (55-170); Estimated CRCL calculation 95 ml/min; Estimated Glomerular Filt Rate > 60; Glucose 138 mg/dL (75-110); Magnesium 2.2 mg/dL (1.6-2.3); Potassium 3.1 mmol/L (3.4-5.0); Sodium 138 mmol/L (137-145)
[2020-01-19] MEDS: POTASSIUM CHLORIDE 20 MEQ TABLET 60 MEQ PO (08:24)
[2020-01-19] MEDS: BACLOFEN 10 MG TABLET 20 MG BY MOUTH ×3 (08:26→17:48)
[2020-01-19] MEDS: lamoTRIgine 100 MG TABLET 200 MG PO ×2 (08:26→17:48)
[2020-01-19] MEDS: buPROPion HCL XL (24 HR) 150 MG TABCR 300 MG PO (08:26)
[2020-01-19] MEDS: PANTOPRAZOLE 40 MG TABLET PO (08:27)
[2020-01-19] MEDS: predniSONE 5 MG TABLET PO ×3 (08:27→17:48)
--- NOTE | 2020-01-19 11:04 | PM.IMPN ---
Progress Note: A&P Assessment and Plan (1) Acute metabolic encephalopathy: Code(s): G93.41 - Metabolic encephalopathy Status: Acute Assessment and Plan: Acute metabolic encephalopathy complicating the patient's underlying bipolar disorder with likely non adherence to medical therapy. This appears to have resolved as he is more conversive and A&Ox4 for me today. Fever his resolved. UCx negative. Patient did have a mildly elevated temperature of 100.5? earlier in stay Rocephin earlier in stay (3 doses given); now d/c'd due to negative Ucx, patient asymptomatic Patient passed his swallow study; resume home medications Monitor (2) Acute renal failure: Code(s): N17.9 - Acute kidney failure, unspecified Status: Acute Assessment and Plan: Cr of 0.70 this morning Repeat BMP tomorrow Will continue bicarb drip. Monitor urine output. (3) Rhabdomyolysis: Code(s): M62.82 - Rhabdomyolysis Status: Acute Assessment and Plan: CK has decreased to 1300 this morning Continue bicarb drip Will monitor CK tomorrow Consider discharge in next few days pending CK values (4) Acute hypernatremia: Code(s): E87.0 - Hyperosmolality and hypernatremia Status: Acute Assessment and Plan: Likely due to hypovolemia. Na now WNL Patient is on a bicarb drip. BMP tomorrow (5) Metabolic acidosis: Code(s): E87.2 - Acidosis Status: Acute Assessment and Plan: Improving/resolved. Likely due to rhabdomyolysis. Monitor lab values (6) Bipolar disorder: Code(s): F31.9 - Bipolar disorder, unspecified Status: Acute Assessment and Plan: With possible acute manic phase. Home meds have been resumed Patient asking about a home Klonopin, will have nursing check this home medication (7) Hypokalemia: Code(s): E87.6 - Hypokalemia Status: Acute Assessment and Plan: K was 3.1 this morning; replaced Monitor closely Replace as needed Subjective Date/time seen: 01/19/20 11:04 Interval history: Patient is a 59 yo M with history of bipolar disorder, peripheral neuropathy and rheumatoid arthritis who is here for evaluation and treatment of AMS, LILIANA, and rhabdomyolysis. Patient states his main complaint is his weakness and chronic pain again today. Today he states he did'nt sleep well because of pain; he rates his pain 10/10 with it explained ten would be on the floor writhing in pain; it should be noted that he looks very comfortable lying in bed with arms folded, speaking softly, no wincing or moaning in pain. Otherwise has been feeling okay. No other complaints at this time. Denies f/c/s, headaches, dizziness, lightheadedness, cp/palpitations, sob/cough, n/v/d/c, abd pain, changes in BMs, dysuria, hematuria, calf pain/swelling. Review of Systems Review of Systems: All systems reviewed & are unremarkable except as noted in HPI and below Exam Narrative: Exam Narrative: Patient lying supine in bed at time of visit. arms folded, resting comfortably in bed Const: General: cooperative, comfortable, no acute distress, well developed, alert and awake Nutritional Appearance: well nourished Orientation/consciousness: patient oriented x3 HENMT: Head: normocephalic and atraumatic General nose exam: Normal nares present Face and sinus: face symmetric Eyes: General: appearance normal, both eyes and all related structures EOM: EOMs intact bilaterally Neck: Neck: trachea midline and supple Resp: Effort & Inspection: normal respiratory effort Auscultation: clear to auscultation bilaterally Cardio: Rate: regular rate Rhythm: regular rhythm Heart sounds: no murmurs GI:
[2020-01-19 12:00] VITALS: BP 146/82; PULSE 68; RESP 18; TEMP 37.1; O2SAT 96
[2020-01-19 16:00] VITALS: BP 134/83; PULSE 79; RESP 18; TEMP 36.9; O2SAT 96
[2020-01-19] MEDS: QUEtiapine FUMARATE 25 MG TABLET PO (20:22)
[2020-01-19] MEDS: ARIPiprazole 5 MG TABLET PO (20:24)
[2020-01-19 22:00] VITALS: BP 135/80; PULSE 60; RESP 18; TEMP 36.6; O2SAT 99
[2020-01-20] MEDS: SODIUM BICARBONATE 8.4% 100 MEQ in DEXTROSE 5% 1,000 ML 1,000 ML 150 MEQ IV PUSH ×2 (03:25→12:09)
[2020-01-20] MEDS: MORPHINE SULFATE 2 MG/ML INJ 1 MG IV PUSH ×2 (05:54→12:05)
[2020-01-20 06:00] VITALS: BP 149/84; PULSE 63; RESP 18; TEMP 37.3; O2SAT 94
[2020-01-20 06:33] LABS: Basophils Percent Auto 0.2 % (0.2-1.2); Eosinophils Absolute Auto 0.1 K/mm3 (0-0.3); Eosinophils Percent Auto 0.6 % (0-4.4); Hematocrit 37.8 % (42.0-52.0); Hemoglobin 13.2 g/dL (14.0-18.0); Immature Granulocyte Absolute 0.07 K/mm3 (0.00-0.031); Immature Granulocyte Percent A 0.8 % (0-0.5); Lymphocytes Absolute Auto 1.72 K/mm3 (0.9-3.2); Lymphocytes Percent Auto 20.6 % (18.3-44.2); Mean Corpuscular HGB Conc 34.9 g/dl (32-36); Mean Corpuscular Hemoglobin 33.1 pg (26-34); Mean Corpuscular Volume 94.7 fl (80-100); Mean Platelet Volume 11.5 fl (7.4-10.4); Monocytes Absolute Auto 0.8 K/mm3 (0.1-0.6); Monocytes Percent Auto 9.6 % (2.6-8.5); Neutrophils Absolute Auto 5.7 K/mm3 (1.3-6.7); Neutrophils Percent Auto 68.2 % (45.5-73.1); Platelet Count Result 191 k/mm3 (150-375); Red Blood Count 3.99 M/mm3 (4.6-6.20); Red Cell Distribution Width 12.1 % (11.5-14.5); White Blood Count 8.3 K/mm3 (4.5-10.0)
[2020-01-20 06:44] LABS: Alanine Aminotransferase 107 U/L (4-50); Albumin Level 3.4 g/dL (3.5-5.1); Alkaline Phosphatase 64 U/L (38-126); Aspartate Amino Transferase 76 U/L (17-59); Bilirubin,Total 0.7 mg/dL (0.2-1.3); Blood Urea Nitrogen 5 mg/dL (9-20); Calcium 8.7 mg/dL (8.4-10.2); Carbon Dioxide 35 mmol/L (22-30); Chloride 99 mmol/L (98-107); Creatine Kinase 539 U/L (55-170); Estimated CRCL calculation 110 ml/min; Estimated Glomerular Filt Rate > 60; Glucose 121 mg/dL (75-110); Magnesium 2.1 mg/dL (1.6-2.3); Potassium 3.4 mmol/L (3.4-5.0); Sodium 137 mmol/L (137-145)
[2020-01-20] MEDS: BACLOFEN 10 MG TABLET 20 MG BY MOUTH ×3 (08:17→16:10)
[2020-01-20] MEDS: lamoTRIgine 100 MG TABLET 200 MG PO ×2 (08:17→16:10)
[2020-01-20] MEDS: predniSONE 5 MG TABLET PO ×3 (08:18→16:10)
[2020-01-20] MEDS: buPROPion HCL XL (24 HR) 150 MG TABCR 300 MG PO (08:18)
[2020-01-20] MEDS: PANTOPRAZOLE 40 MG TABLET PO (08:18)
[2020-01-20] MEDS: POTASSIUM CHLORIDE 20 MEQ TABLET 60 MEQ PO (08:23)
[2020-01-20 14:00] VITALS: BP 140/81; PULSE 72; RESP 18; TEMP 37.2; O2SAT 98
--- NOTE | 2020-01-20 14:01 | PM.IMPN ---
Progress Note: A&P Assessment and Plan (1) Rhabdomyolysis: Code(s): M62.82 - Rhabdomyolysis Status: Acute Assessment and Plan: CK has decreased to 539 this morning Will d/c bicarb drip Will monitor CK tomorrow Patient appears to be clinically improved for discharge from a medical standpoint. Please see below (2) Acute renal failure: Code(s): N17.9 - Acute kidney failure, unspecified Status: Resolved Assessment and Plan: Cr of 0.60 this morning Repeat BMP tomorrow Will continue bicarb drip. Monitor urine output. (3) Hypokalemia: Code(s): E87.6 - Hypokalemia Status: Acute Assessment and Plan: K was 3.4 this morning; replaced Monitor Replace as needed (4) Acute hypernatremia: Code(s): E87.0 - Hyperosmolality and hypernatremia Status: Acute Assessment and Plan: Likely due to hypovolemia. Na now WNL d/c fluids BMP tomorrow (5) Acute metabolic encephalopathy: Code(s): G93.41 - Metabolic encephalopathy Status: Resolved Assessment and Plan: Acute metabolic encephalopathy complicating the patient's underlying bipolar disorder with likely non adherence to medical therapy. This appears to have resolved as he is more conversive and A&Ox4 for me today. UCx negative. Patient did have a mildly elevated temperature of 100.5? earlier in stay. Fever has resolved. Rocephin earlier in stay (3 doses given); now d/c'd due to negative Ucx, patient asymptomatic Patient passed his swallow study; continue home medications Monitor (6) Bipolar disorder: Code(s): F31.9 - Bipolar disorder, unspecified Status: Acute Assessment and Plan: With possible acute manic phase. Home meds have been resumed (7) Gallbladder sludge: Code(s): K82.8 - Other specified diseases of gallbladder Status: Acute Assessment and Plan: Clinically does not appear to be acute cholecystitis. Elevated LVTs but possibly secondary to rhabdomyolysis; LFTs improving with resolution of rhabdo. His pain seems to be associated with his chronic back pain. Again, patient appears comfortable upon entering room, but states he is in severe pain Recommended f/u with PCP once established for a General Surgery referral Will stop Morphine for breakthrough pain as patient seems comfortable on exam and nursing reporting patient sleeping most of day (8) Discharge planning issues: Code(s): Z02.9 - Encounter for administrative examinations, unspecified Status: Acute Assessment and Plan: After long discussion, patient states he does not feel going home at this moment. He appears to be medically stable for discharge. He was declining SNF placement earlier in stay, but now is agreeable to SNF placement for short stay as he does not feel he can care for himself at home CC made aware; working on placement COVID test placed Plan for discharge tomorrow to SNF if placement found and covid testing resulted Subjective Date/time seen: 01/20/20 14:01 Interval history: Patient is a 59 yo M with history of bipolar disorder, peripheral neuropathy and rheumatoid arthritis who is here for evaluation and treatment of AMS, LILIANA, and rhabdomyolysis. Patient states his main complaint is his weakness and chronic/severe pain again today although it should be noted that upon entering the room, patient was asleep, resting comfortably, with it taking several attempts to verbally wake the patient. Today he states he did'nt sleep well because of pain. He tells me he does not feel safe going home today and psychologically is ready for discharge. When discussing yony
[2020-01-20] MEDS: clonazePAM 0.5 MG TABLET 1 MG PO (16:11)
[2020-01-20] MEDS: QUEtiapine FUMARATE 25 MG TABLET PO (21:02)
--- NOTE | 2020-01-20 21:07 | PC.NURSE ---
Reported he no longer takes Abilify 5mg po qhs. Home medication list updated.
[2020-01-20 22:00] VITALS: BP 115/86; PULSE 87; RESP 18; TEMP 36.9; O2SAT 97
[2020-01-21] MEDS: ACETAMINOPHEN 325 MG TABLET 650 MG PO (02:57)
[2020-01-21] MEDS: clonazePAM 0.5 MG TABLET 1 MG PO (02:57)
[2020-01-21 06:00] VITALS: BP 145/82; PULSE 73; RESP 18; TEMP 37.1; O2SAT 98
[2020-01-21 06:07] LABS: Hematocrit 40.6 % (42.0-52.0); Hemoglobin 13.9 g/dL (14.0-18.0); Mean Corpuscular HGB Conc 34.2 g/dl (32-36); Mean Corpuscular Hemoglobin 32.7 pg (26-34); Mean Corpuscular Volume 95.5 fl (80-100); Mean Platelet Volume 11.5 fl (7.4-10.4); Platelet Count Result 228 k/mm3 (150-375); Red Blood Count 4.25 M/mm3 (4.6-6.20); Red Cell Distribution Width 11.9 % (11.5-14.5); White Blood Count 12.2 K/mm3 (4.5-10.0)
[2020-01-21 06:31] LABS: Alanine Aminotransferase 97 U/L (4-50); Albumin Level 3.5 g/dL (3.5-5.1); Alkaline Phosphatase 72 U/L (38-126); Aspartate Amino Transferase 57 U/L (17-59); Bilirubin,Total 0.7 mg/dL (0.2-1.3); Blood Urea Nitrogen 10 mg/dL (9-20); Calcium 9.1 mg/dL (8.4-10.2); Carbon Dioxide 31 mmol/L (22-30); Chloride 99 mmol/L (98-107); Creatine Kinase 300 U/L (55-170); Estimated CRCL calculation 95 ml/min; Estimated Glomerular Filt Rate > 60; Glucose 94 mg/dL (75-110); Potassium 3.6 mmol/L (3.4-5.0); Sodium 134 mmol/L (137-145)
[2020-01-21] MEDS: BACLOFEN 10 MG TABLET 20 MG BY MOUTH (09:23)
[2020-01-21] MEDS: PANTOPRAZOLE 40 MG TABLET PO (09:23)
[2020-01-21] MEDS: lamoTRIgine 100 MG TABLET 200 MG PO (09:23)
[2020-01-21] MEDS: buPROPion HCL XL (24 HR) 150 MG TABCR 300 MG PO (09:23)
[2020-01-21] MEDS: ENOXAPARIN 40 MG/0.4 ML SYRINGE SUB-Q (09:23)
[2020-01-21] MEDS: predniSONE 5 MG TABLET PO (09:24)
--- NOTE | 2020-01-21 11:15 | PM.DS ---
DS: Admitting Diagnosis Admitting Diagnosis Admitting Diagnosis: Metabolic encephalopathy DS: Discharge Diagnosis Discharge Diagnosis (1) Rhabdomyolysis: Code(s): M62.82 - Rhabdomyolysis Status: Acute Assessment and Plan: Patient was found down on the ground for unknown amount of time. At presentation, CK was 11,436 and declined to 300 following bicarb drip and IV fluids. (2) Acute renal failure: Code(s): N17.9 - Acute kidney failure, unspecified Status: Resolved Assessment and Plan: Burt to be secondary to rhabdomyolysis. Creatinine was 1.4 at presentation and improved to 0.7. Repeat BMP in 1 week. (3) Hypokalemia: Code(s): E87.6 - Hypokalemia Status: Acute Assessment and Plan: Potassium was noted to be low and was replaced as needed. Potassium was stable at discharge. Repeat BMP in 1 week, as noted above. (4) Acute hypernatremia: Code(s): E87.0 - Hyperosmolality and hypernatremia Status: Acute Assessment and Plan: Sodium was as high as 148 at presentation, likely due to hypovolemia. He was started on bicarb drip and his sodium decline at a steady rate. Sodium was 134 at time of discharge. He will repeat a sodium level in 1 week. (5) Acute metabolic encephalopathy: Code(s): G93.41 - Metabolic encephalopathy Status: Resolved Assessment and Plan: Acute metabolic encephalopathy complicating the patient's underlying bipolar disorder with likely non adherence to medical therapy. This appears to have resolved, and upon my evaluation he was alert and oriented x4. His urinalysis was suspicious for UTI with 4+ bacteria and Rocephin was initiated. He received a total of 3 doses, however his urine culture came back negative and he was asymptomatic, so therefore antibiotics were discontinued. He had a very mildly elevated temperature of 100.5? early in his stay which resolved and also mild leukocytosis. Preliminary blood culture show NGTD, and final cultures will be monitored. (6) Bipolar disorder: Code(s): F31.9 - Bipolar disorder, unspecified Status: Acute Assessment and Plan: With possible acute manic phase. Per review of chart, there concerns express regarding compliance to medication regimen. I encouraged him to follow-up with his psychiatrist as soon as possible. Abilify was started, as it appeared it may have been home medication, but patient states he now takes Seroquel instead. No changes were made to his psychiatric medications, and medication compliance was encouraged. (7) Gallbladder sludge: Code(s): K82.8 - Other specified diseases of gallbladder Status: Acute Assessment and Plan: Patient complained of very vague abdominal discomfort, therefore right upper quadrant ultrasound was performed due to concerns for possible cholecystitis. There was not evidence for acute cholecystitis, however biliary sludge was noted. He had elevated LFTs, but this was better explained by the rhabdomyolysis and these levels returned to normal. He was given morphine for his severe abdominal pain, however he became lethargic, and therefore morphine was discontinued. Patient appeared comfortable on my exam. Recommend he follow-up with his PCP for possible referral to general surgery. (8) Discharge planning issues: Code(s): Z02.9 - Encounter for administrative examinations, unspecified Status: Acute Assessment and Plan: Initially, patient reported concerns about his ability to take care of himself at home, however he declined SNF placement. Later, he became agreeable to SNF placement, but he was not accepted anywhere. He was offered home health, but did not wish to continue care with his current PCP, so therefore home health was unable to be set up. Additionally, patient is not homebound. Eventually, patient decided that he was in fact capable of returning home, and he set up
[2020-01-21 14:26] LABS: SARS-CoV-2 RNA PCR Negative
== END 2020-01-21 13:30 | disposition home or self-care (01) | DRG 682 ==
LOC: ANHED 08:06 → ANH3MEDSUR 12:56
PROVIDERS: Internal Medicine; Physician Assistant; Admitting Provider Internal Medicine; Emergency Provider Emergency Medicine; PCP Family Medicine; Visit Provider Physician Assistant
DX: N17.9 Acute kidney failure, unspecified (principal); G93.41 Metabolic encephalopathy; M62.82 Rhabdomyolysis; E87.0 Hyperosmolality and hypernatremia; E87.2 Acidosis; F31.9 Bipolar disorder, unspecified; M06.9 Rheumatoid arthritis, unspecified; F43.10 Post-traumatic stress disorder, unspecified; G62.9 Polyneuropathy, unspecified; K83.8 Other specified diseases of biliary tract; Z11.59 Encounter for screening for other viral diseases; E87.6 Hypokalemia
CPT/HCPCS: 36415; 51701; 70450; 71045; 72133; 74176; 76705; 80048; 80053; 80074; 80307; 81001; 82550; 82948; 83605; 83690; 83735; 85025; 85027; 85610; 85730; 87040; 87086; 87635; 92610; 93005; 96361; 96365; 96366; 96367; 96372; 96375; 96376; 97110; 97116; 97161; 97165; 97530; 97535; 99285; A9270; C9803; G0378; J0131; J0696; J1630; J1650; J2060; J2270; J3480; J7030; J7070; J7512; U0003

== ENCOUNTER 2020-01-27 15:40 | Inpatient (IN) | payer MEDICARE, MEDICAID, SELFPAY ==
--- NOTE | ~2020-01-27 | MR_ITS ---
EXAMINATION: MR thoracic spine wo/w con DATE: 01/28/2020 14:28 INDICATION: Back pain. Abnormal gait. TECHNIQUE: Magnetic resonance imaging (MRI) of the thoracic spine was performed without and with 15 m m MultiHance intravenous contrast. Sequences included sagittal and axial T2-weighted FSE, sagittal T2 -weighted FS FSE, and sagittal and axial T1-weighted FSE. Postcontrast sequences included sagittal an d axial T1-weighted FS FSE. COMPARISON: Lumbar spine MRI 04/15/2019, chest 2 views 04/09/2019 FINDINGS: Motion artifact is noted. There is a burst fracture of T7 with 3/5 loss of height and retro pulsion of bone 4 mm into central spinal canal with mild central canal stenosis. Bone marrow enhancem ent is noted. Intervertebral disc heights are normal. The discs do not extend beyond the endplate mar gins. There is no neural foraminal stenosis, but motion artifact decreases sensitivity. The spinal co rd signal intensity is normal. IMPRESSION: 1. Acute versus subacute T7 burst fracture with mild central canal stenosis. Reviewed, dictated and finalized at location A.
--- NOTE | ~2020-01-27 | XR_ITS ---
EXAMINATION: XR chest 1V portable INDICATION: Weakness and back pain TECHNIQUE: Portable AP chest at 1819 hours COMPARISON: 01/16/2020 FINDINGS: The lungs are free of acute opacities. There is no pleural effusion or pneumothorax. The ca rdiomediastinal silhouette is normal. IMPRESSION: 1. No acute cardiopulmonary abnormality. Reviewed, dictated and finalized at location A.
--- NOTE | ~2020-01-27 | CT_ITS ---
EXAMINATION: CT brain wo con EXAM DATE: 01/28/2020 14:37 INDICATION: Abnormal gait. TECHNIQUE: Spiral CT of the head was performed without contrast. Axial, coronal and sagittal images were reviewed. The dose-length product (DLP) for this examination was 605.33 mGy-cm. The exposure w as tailored according to patient size, and iterative reconstruction (ASIR) was used as additional dos e reduction technique. Comparison is made to prior examination from 01/16/2020. FINDINGS: There is no acute intraparenchymal hemorrhage. No evidence of intraparenchymal brain mass lesion. No evidence of acute infarction. Please note that initial head CT has limited sensitivity f or small or acute infarctions. There is mild to moderate periventricular and subcortical hypodensity, nonspecific but probably related to small vessel ischemic disease. There is mild to moderate promi nence of the sulci and ventricles related to cerebral atrophy. There is intracranial carotid arteri osclerosis. There are no extra-axial collections. There is no mass effect or midline shift. Patien t has had right-sided ocular lens surgery. Soft tissue is unremarkable. The visualized sinuses and mastoid air cells are well aerated. IMPRESSION: 1. No acute intracranial findings. 2. Chronic age related findings. Reviewed, dictated and finalized at location A.
[2020-01-27 15:46] VITALS: BP 116/76; PULSE 76; RESP 20; TEMP 36.6; O2SAT 99
--- NOTE | 2020-01-27 15:58 | ED.WEAKNESS ---
HPI - Weakness General Chief complaint: Weakness Stated complaint: sob/cough/weakness Time Seen by Provider: 01/27/20 15:52 History of Present Illness HPI Narrative: He says that he has generally been feeling unwell for quite some time. Today he was trying to walk from one room to another in his house when he suddenly found himself unable to walk. He cannot explain exactly why he was not able to walk. Related Data Home Medications Medication Instructions Recorded Confirmed acetaminophen-codeine 1 tablet PO PRN PRN 01/16/20 01/16/20 bupropion HCl 300 mg PO DAILY 01/16/20 01/17/20 hydrocodone-acetaminophen 1 tablet PO PRN PRN MDD 5 01/16/20 01/17/20 lamotrigine 200 mg PO BID 01/16/20 01/16/20 pantoprazole [Protonix] 40 mg PO QAM 01/16/20 01/16/20 quetiapine 25 mg PO HS 01/16/20 01/16/20 baclofen 20 mg BYMOUTH TID PRN 01/17/20 01/17/20 prednisone 5 mg PO TID 01/17/20 01/17/20 clonazepam 1 mg PO TID PRN 01/18/20 01/18/20 Allergies Allergy/AdvReac Type Severity Reaction Status Date / Time No Known Allergies Allergy Unknown Verified 01/27/20 16:01 Review of Systems Review of Systems: All systems reviewed & are unremarkable except as noted in HPI and below Constitutional: Constitutional: Denies chills and Denies fever(s) Eyes: Eyes: Denies change in vision Cardiovascular: Cardiovascular: Denies chest pain Respiratory: Respiratory: Reports dyspnea Gastrointestinal: Gastrointestinal: Reports nausea Musculoskeletal: Musculoskeletal: Reports back pain Neurologic: Reports weakness [facility] Past Medical History Medical History Bipolar disorder Chronic back pain Hyperlipidemia L1 vertebral fracture April 2019 Peripheral neuropathy PTSD (post-traumatic stress disorder) Rheumatoid arthritis Surgical History Surgical History History of facial surgery History of herniorrhaphy Family History Family History Mother Dementia Acute myocardial infarction Sibling Diabetes mellitus Brother and sister Social History Social History Smoking status: Former smoker Smoking end date: 07/04/90 Alcohol intake: current Substance use: current Substance use type: marijuana and opiates Gender identity (if verbalized by the patient): Male Spiritual care concerns: No Exam Const: General: healthy appearing, no acute distress and alert Orientation/consciousness: patient oriented x3 HENMT: Head: normal to inspection Neck: Neck: normal visual inspection and no lymphadenopathy Resp: Effort & Inspection: normal respiratory effort Auscultation: clear to auscultation bilaterally, no rales, no rhonchi and no wheezes Cardio: Jugular venous distension: no JVD Rate: regular rate Rhythm: regular rhythm Heart sounds: no murmurs GI: Inspection: non-distended GI Palp: Yes Soft to palpation and Yes Tenderness to palpation present (GI) Skin: General skin exam: normal color Neuro: General: patient oriented x3 and moves all extremities Speech: normal speech Other: refusing t participate in exam Extrem: General: no edema Psych: Appearance: well kempt Affect: normal affect Course Vital Signs Vital signs: Vital Signs Temperature 36.6 C 01/27/20 15:46 Pulse Rate 76 01/27/20 15:46 Respiratory Rate 20 01/27/20 15:46 Blood Pressure 116/76 01/27/20 15:46 Pulse Oximetry 99 01/27/20 15:46 Temperature 36.6 C 01/27/20 15:46 Pulse Rate 86 01/27/20 19:16 Respiratory Rate 20 01/27/20 19:16 Blood Pressure 106/85 01/27/20 19:16 Pulse Oximetry 100 01/27/20 19:16 MDM - Weakness MDM Narrative Medical decision making narrative: He has elevated WBCs. This could indicate infection, but his other cell counts have increase in proportion so this may just
[2020-01-27] MEDS: SODIUM CHLORIDE 0.9% IV 1,000 ML 999 ML IV CONT (16:39)
[2020-01-27 16:40] VITALS: BP 116/78; PULSE 75; RESP 20; O2SAT 98
[2020-01-27 16:41] LABS: Basophils Percent Auto 0.3 % (0.2-1.2); Hematocrit 40.8 % (42.0-52.0); Hemoglobin 14.1 g/dL (14.0-18.0); Immature Granulocyte Absolute 0.35 K/mm3 (0.00-0.031); Immature Granulocyte Percent A 2.4 % (0-0.5); Lymphocytes Absolute Auto 2.01 K/mm3 (0.9-3.2); Lymphocytes Percent Auto 13.9 % (18.3-44.2); Mean Corpuscular HGB Conc 34.6 g/dl (32-36); Mean Corpuscular Hemoglobin 33.2 pg (26-34); Mean Platelet Volume 10.1 fl (7.4-10.4); Monocytes Absolute Auto 0.9 K/mm3 (0.1-0.6); Monocytes Percent Auto 6.4 % (2.6-8.5); Neutrophils Absolute Auto 11.2 K/mm3 (1.3-6.7); Platelet Count Result 395 k/mm3 (150-375); Red Blood Count 4.25 M/mm3 (4.6-6.20); Red Cell Distribution Width 12.9 % (11.5-14.5); White Blood Count 14.5 K/mm3 (4.5-10.0)
[2020-01-27 17:05] LABS: Albumin Level 3.3 g/dL (3.5-5.1); Alkaline Phosphatase 114 U/L (38-126); Anion Gap 8.6 mmol/L (7-16); Aspartate Amino Transferase 23 U/L (17-59); Bilirubin,Total 0.4 mg/dL (0.2-1.3); Blood Urea Nitrogen 24 mg/dL (9-20); Calcium 8.8 mg/dL (8.4-10.2); Carbon Dioxide 26 mmol/L (22-30); Chloride 104 mmol/L (98-107); Creatine Kinase 41 U/L (55-170); Estimated CRCL calculation 95 ml/min; Estimated Glomerular Filt Rate > 60; Glucose 93 mg/dL (75-110); Potassium 3.6 mmol/L (3.4-5.0); Sodium 135 mmol/L (137-145)
[2020-01-27 17:13] LABS: Alanine Aminotransferase 36 U/L (4-50)
[2020-01-27 18:13] VITALS: BP 126/98; PULSE 66; PULSE 93
[2020-01-27 19:06] LABS: Add Urine Microscopic? YES; Appearance Urine Clear (Clear); Bilirubin Urine 1+ (Negative); Blood Urine Negative (Negative); Color Urine Yellow (Yellow); Glucose Urine UA Negative (Negative); Ketones Urine Negative (Negative); Leukocyte Esterase Ur Negative LEU/UL (Negative); Mucus Urine Rare /lpf; Nitrate Urine Negative (Negative); Protein Urine Negative (Negative); Specific Grav Ur 1.023 (1.001-1.035); Urobilinogen Urine Negative mg/dL (<2.0); WBC Urine 0-3 /hpf
[2020-01-27 19:16] VITALS: BP 106/85; PULSE 86; RESP 20; O2SAT 100
[2020-01-27 21:52] VITALS: BP 117/103; PULSE 80; RESP 22; O2SAT 97
[2020-01-27 22:00] VITALS: BP 139/94; PULSE 69; RESP 21; TEMP 36.5; O2SAT 100; BMI 25.6
--- NOTE | 2020-01-27 22:13 | ADMGEN ---
This patient, Kevin Hernandez, was admitted to 2 Medical Room 249-01. Patient/family oriented to hospital policies and general routines including ID bracelet, bed and alarms, visiting hours, pain management, procedures, bathroom and other care routines, personal items, smoking policy, room service/diet, and visiting hours. Valuables list has been completed. Information on how to activate the Rapid Response Team has been discussed. Patient/Family are encouraged to report perceived risks to care and to ask questions if they do not understand what they are told or what they should do.
[2020-01-27] MEDS: BACLOFEN 10 MG TABLET 20 MG BY MOUTH (23:16)
[2020-01-27] MEDS: LACTATED RINGERS 1,000 ML 150 ML IV CONT (23:16)
[2020-01-27] MEDS: QUEtiapine FUMARATE 25 MG TABLET PO (23:17)
[2020-01-27] MEDS: lamoTRIgine 100 MG TABLET 200 MG PO (23:17)
[2020-01-28] MEDS: LACTATED RINGERS 1,000 ML 150 ML IV CONT ×2 (05:50→15:12)
[2020-01-28] MEDS: clonazePAM 0.5 MG TABLET 1 MG PO ×2 (05:53→15:12)
[2020-01-28 06:00] VITALS: BP 135/55; PULSE 77; RESP 20; TEMP 36.7; O2SAT 99
[2020-01-28 06:43] LABS: Hematocrit 39.7 % (42.0-52.0); Hemoglobin 13.7 g/dL (14.0-18.0); Mean Corpuscular HGB Conc 34.5 g/dl (32-36); Mean Corpuscular Hemoglobin 33.3 pg (26-34); Mean Corpuscular Volume 96.4 fl (80-100); Platelet Count Result 360 k/mm3 (150-375); Red Blood Count 4.12 M/mm3 (4.6-6.20); Red Cell Distribution Width 12.9 % (11.5-14.5); White Blood Count 13.3 K/mm3 (4.5-10.0)
[2020-01-28 07:09] LABS: Anion Gap 7.2 mmol/L (7-16); Blood Urea Nitrogen 18 mg/dL (9-20); Calcium 8.2 mg/dL (8.4-10.2); Carbon Dioxide 27 mmol/L (22-30); Chloride 105 mmol/L (98-107); Estimated CRCL calculation 110 ml/min; Estimated Glomerular Filt Rate > 60; Glucose 74 mg/dL (75-110); Potassium 3.2 mmol/L (3.4-5.0); Sodium 136 mmol/L (137-145)
--- NOTE | 2020-01-28 08:00 | PM.IMHP ---
H&P: HPI History of Present Illness Chief complaint: midback pain, difficulty walking Narrative: date and time of patient contact: 01/28/2020 at 6:45 a.m. Kevin Hernandez is a 59 year old male with past medical history of chronic pain syndrome, bipolar disorder, PTSD, and anxiety who presented to the ER with worsening back pain. He has had thoracic back pain for many years. He reports that the pain is been worsening over the last 6-7 months. He reports that the pain is acutely worsened over the last week since he was discharged from the hospital. He had a CT of the spine during his prior hospitalization that demonstrated age-indeterminate L5 compression fracture but no thoracic process. He reports reports that the pain became so much that when he made senior care across the room at home and had to stop. He thought that his legs would buckle underneath him and he had to go sit back down. He has chronic peripheral neuropathy up to his knees. He denies having fallen since his last hospitalization. The patient has an abnormal gait on exam. He requires 2 nurse assist to get back to the bed. Earlier in the ER the patient actually even refused to stand up to demonstrated gait. Overnight nursing staff reported that the patient was confused in gait variable answers to questions. He had initially complained of shortness of breath in triage but denied having shortness of breath at the time of my evaluation. He has not been having any cough or congestion. He denies any fevers or chills. His only complaint is of his back pain. He has not had any bowel or bladder incontinence. Review of Systems Review of Systems: Narrative: 12 systems were reviewed with pertinent positives and negatives per HPI. Except as documented in the HPI, all other systems were reviewed and are negative. [facility] Past Medical History Medical History (Updated 01/28/20 @ 08:52 by Radha Brown DO) Bipolar disorder Chronic back pain Compression fracture of L5 vertebra Hyperlipidemia L1 vertebral fracture April 2019 Peripheral neuropathy PTSD (post-traumatic stress disorder) Rheumatoid arthritis Surgical History Surgical History History of facial surgery History of herniorrhaphy Family History Family History Mother Dementia Acute myocardial infarction Sibling Diabetes mellitus Brother and sister Social History Social History (Reviewed 01/28/20 @ 08:05 by JAKUB Felix Smoking status: Former smoker Smoking end date: 07/04/90 Alcohol intake: never Substance use: current Substance use type: marijuana Gender identity (if verbalized by the patient): Male Spiritual care concerns: No Meds Home Medications and Allergies Home Medications Medication Instructions Recorded Confirmed Type bupropion HCl 300 mg PO DAILY 01/16/20 01/27/20 History hydrocodone-acetaminophen 1 tablet PO Q4-6H PRN MDD 5 01/16/20 01/27/20 History lamotrigine 200 mg PO BID 01/16/20 01/27/20 History quetiapine 25 mg PO HS 01/16/20 01/27/20 History baclofen 20 mg BYMOUTH TID PRN 01/17/20 01/27/20 History prednisone 5 mg PO TID 01/17/20 01/27/20 History clonazepam 1 mg PO TID PRN 01/18/20 01/27/20 History Allergies Allergy/AdvReac Type Severity Reaction Status Date / Time No Known Allergies Allergy Unknown Verified 01/28/20 02:10 Vital Signs Vital Signs - 24 hr 01/27/20 15:46 01/27/20 16:40 01/27/20 18:13 Temperature 97.8 F Pulse Rate 76 75 93 Respiratory Rate 20 20 Blood Pressure 116/76 116/78 126/98 H Pulse Oximetry 99 98 01/27/20 19:16 01/27/20 21:52 01/27/20 22:00 Temperature 97.7 F Pulse Rate 86 80 69 Respiratory Rate 20 22 H 21 H Blood Pressure 106/85 117/103 H 139/94 H Pulse Oximetry 100 97 100 01/28/20 06:00 Temperature 98.1 F Pulse Rate 77 Respiratory Rate 20 Blood Pressure 135/55 L Pulse Oximet
[2020-01-28] MEDS: POTASSIUM CHLORIDE 20 MEQ TABLET 40 MEQ PO (09:37)
[2020-01-28] MEDS: diazePAM 5 MG TABLET PO (09:37)
[2020-01-28] MEDS: buPROPion HCL XL (24 HR) 150 MG TABCR 300 MG PO (09:38)
[2020-01-28] MEDS: lamoTRIgine 100 MG TABLET 200 MG PO ×2 (09:38→18:10)
[2020-01-28] MEDS: predniSONE 5 MG TABLET PO ×3 (09:38→18:10)
[2020-01-28 11:46] VITALS: BP 131/88; PULSE 94; RESP 19; TEMP 37.1; O2SAT 97
[2020-01-28 14:00] VITALS: BP 106/75; PULSE 81; RESP 19; TEMP 36.8; O2SAT 96
--- NOTE | 2020-01-28 17:13 | PM.TDS ---
Transfer Discharge Sum: Prov Provider Date of admission: 01/28/20 15:13 Primary care physician: Chino Charles MD Admitting clinician: Rahda Brown DO DS: Admitting Diagnosis Admitting Diagnosis Admitting Diagnosis: Dehydration DS: Discharge Diagnosis Discharge Diagnosis (1) Dehydration: Code(s): E86.0 - Dehydration Status: Acute (2) Chronic pain: Qualifiers: Chronic pain type: other chronic pain Qualified Code(s): G89.29 - Other chronic pain Code(s): G89.29 - Other chronic pain Status: Chronic (3) Abnormal gait: Code(s): R26.9 - Unspecified abnormalities of gait and mobility Status: Acute (4) Unstable burst fracture of T7 vertebra: Code(s): S22.062A - Unstable burst fracture of T7-T8 vertebra, initial encounter for closed fracture Status: Acute (5) Bipolar disorder: Code(s): F31.9 - Bipolar disorder, unspecified Status: Chronic (6) Hyperlipidemia: Code(s): E78.5 - Hyperlipidemia, unspecified Status: Chronic (7) Hypokalemia: Code(s): E87.6 - Hypokalemia Status: Acute Transfer Discharge Sum: Med Medications Active and Home Medications: Home Medications bupropion HCl 300 mg PO DAILY 01/16/20 [History Confirmed 01/27/20] hydrocodone-acetaminophen 1 tablet PO Q4-6H PRN MDD 5 01/16/20 [History Confirmed 01/27/20] lamotrigine 200 mg PO BID 01/16/20 [History Confirmed 01/27/20] quetiapine 25 mg PO HS 01/16/20 [History Confirmed 01/27/20] baclofen 20 mg BYMOUTH TID PRN 01/17/20 [History Confirmed 01/27/20] prednisone 5 mg PO TID 01/17/20 [History Confirmed 01/27/20] clonazepam 1 mg PO TID PRN 01/18/20 [History Confirmed 01/27/20] Active Medications Hydrocodone Bitart/Acetaminophen ([place] 10-325 Mg) 1 tab PO Q6H PRN PRN Reason: Pain 7-10 Last Admin: 01/28/20 12:12 Dose: 1 tab Documented by: Baclofen (Lioresal Po) 20 mg BY MOUTH TID PRN PRN Reason: Muscle Spasm Last Admin: 01/27/20 23:16 Dose: 20 mg Documented by: Bupropion HCl (Wellbutrin Xl (24 Hr)) 300 mg PO DAILY [facility] Last Admin: 01/28/20 09:38 Dose: 300 mg Documented by: Clonazepam (Klonopin Tablet) 1 mg PO TID PRN PRN Reason: Anxiety Last Admin: 01/28/20 15:12 Dose: 1 mg Documented by: Lactated Ringer's (Lr - Lactated Ringers Iv) 1,000 mls @ 150 mls/hr IV CONT .Q6H40M [facility] Last Admin: 01/28/20 15:12 Dose: 150 mls/hr Documented by: Lamotrigine (Lamictal) 200 mg PO BID [facility] Last Admin: 01/28/20 09:38 Dose: 200 mg Documented by: Prednisone (Prednisone) 5 mg PO TIDWM [facility] Last Admin: 01/28/20 12:12 Dose: 5 mg Documented by: Quetiapine Fumarate (Seroquel) 25 mg PO HS [facility] Last Admin: 01/27/20 23:17 Dose: 25 mg Documented by: Transfer Discharge Sum: Hosp Hospital Course Hospital course: Transfer Summary - Initiated 01/28/20 Patient was transferred 01/29/20 Kevin Hernandez is a 59 year old male with PMH significant for chronic pain, bipolar disorder, PTSD, anxiety, rheumatoid arthritis, and peripheral neuropathy who presented to the emergency department for the evaluation of worsening back pain. He reported that his pain started 6-7 months ago and has worsened. He reported acute worsening in the past week. CT of the spine at his previous admission revealed new mild inferior endplate wedging of L5 without retropulsion, suspicious for subacute to chronic process. He reports that his current pain is so severe that he was unable to make it fpc through the room. He reports that his legs feel they are going to buckle. He is only a fair historian and does not believe he has fallen since April and notes no other known trauma. He was noted to have abnormal gait and required 2 nurses to get to bed. MRI of the thoracic spine was read by radiology as: Burst fracture of T7 with 3/5 loss of height and retropulsion of bone 4 mm into central spinal canal with mild central canal stenosis. Bone marrow enhancement is noted. Interverte
[2020-01-28] MEDS: BACLOFEN 10 MG TABLET 20 MG BY MOUTH (20:16)
[2020-01-28] MEDS: QUEtiapine FUMARATE 25 MG TABLET PO (20:16)
[2020-01-28] MEDS: MORPHINE SULFATE 2 MG/ML INJ IV PUSH (20:16)
[2020-01-28 22:00] VITALS: BP 109/74; PULSE 94; RESP 20; TEMP 36.3; O2SAT 98
[2020-01-29] MEDS: clonazePAM 0.5 MG TABLET 1 MG PO ×2 (00:08→12:32)
[2020-01-29] MEDS: MORPHINE SULFATE 2 MG/ML INJ IV PUSH ×3 (04:10→16:27)
[2020-01-29 06:00] VITALS: BP 118/70; PULSE 83; RESP 18; TEMP 36.4; O2SAT 97
--- NOTE | 2020-01-29 07:31 | PM.IMPN ---
Progress Note: A&P Assessment and Plan (1) Unstable burst fracture of T7 vertebra: Code(s): S22.062A - Unstable burst fracture of T7-T8 vertebra, initial encounter for closed fracture Status: Acute Assessment and Plan: Thoracic spine MRI revealed acute vs. subacute burst fracture of T7 with 3/5 loss of height and retropulsion of bone 4 mm into central spinal canal with mild central canal stenosis. Bone marrow enhancement is noted. He has rheumatoid arthritis and is on chronic prednisone therapy. 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 He denies recent trauma but was recently hospitalized 01/16/20-01/21/20 for altered mental status after being found by his family lying on the floor. Per chart review from that hospital stay, the patient reported that he was hurting all over and laid down on the ground due to pain. He was diagnosed with acute metabolic encephalopathy due to acute manic phase from nonadherence to medical therapy, acute renal failure, and rhabdomyolysis. SNF placement was recommended at that time but he was not accepted and the patient eventually decided that he preferred to return home with close family assistance. I called Dr. Cordova who is sales relationship manager with orthopedic surgery and he recommended transfer to a tertiary facility for evaluation by a spine surgeon. [facility] and the transfer is pending bed placement. He was placed on bed rest. Continue analgesics PRN. (2) Dehydration: Code(s): E86.0 - Dehydration Status: Acute Assessment and Plan: Hemoconcentration was appreciated on labs. He was gently rehydrated and is tolerating PO intake well. IV fluids were discontinued. (3) Chronic pain: Qualifiers: Chronic pain type: other chronic pain Qualified Code(s): G89.29 - Other chronic pain Code(s): G89.29 - Other chronic pain Status: Chronic Assessment and Plan: He has acute on chronic back pain secondary to #1. Continue analgesics PRN. He is on bed rest. (4) Abnormal gait: Code(s): R26.9 - Unspecified abnormalities of gait and mobility Status: Acute Assessment and Plan: Secondary to #1. (5) Bipolar disorder: Qualifiers: Active/Remission status: remission status unspecified Qualified Code(s): F31.9 - Bipolar disorder, unspecified Code(s): F31.9 - Bipolar disorder, unspecified Status: Chronic Assessment and Plan: Stable with no acute issues. Continue clonazepam, lamotrigine, and quetiapine. (6) Hypokalemia: Code(s): E87.6 - Hypokalemia Status: Acute Assessment and Plan: Potassium was 3.2. Potassium was replaced with PO potassium supplement. Plan for repeat BMP. Time Spent With Patient Time with patient: Greater than 35 minutes Subjective Date/time seen: 01/28/20 16:30 Interval history: LATE ENTRY as patient was expected to transfer yesterday so a transfer summary was written. The patient was seen 01/28/20 at 16:30 Mr. Hernandez is a 59 y.o. male seen in follow-up for acute on chronic back pain with ambulatory dysfunction. He reported upper thoracic back pain which is acute worsening in the past week. Onset was 6-7 months ago. He reports no recent trauma. He reports continued, constant upper thoracic back pain today. He has a good appetite and is eating well. He denies constipation and diarrhea. He has no urinary complaints. He denies bowel or bladder incontinence. He denies saddle anesthesia. I discussed his MRI findings with him which demonstrate T7 burst fracture and advised that he will need to transfer to a tertiary care center to see spine surgery. He reports that he would like to go to [facility] as he has been there in the past. Review of Systems Review of Systems: All systems reviewed & are unremarkable except as noted in HPI and below Exam Narrative: Exam Narrative: Temp Pulse Res
[2020-01-29 07:47] VITALS: PULSE 83; RESP 18; O2SAT 97
[2020-01-29 08:03] LABS: Hematocrit 40.7 % (42.0-52.0); Mean Corpuscular HGB Conc 34.4 g/dl (32-36); Mean Corpuscular Hemoglobin 33.1 pg (26-34); Mean Corpuscular Volume 96.2 fl (80-100); Platelet Count Result 358 k/mm3 (150-375); Red Blood Count 4.23 M/mm3 (4.6-6.20); Red Cell Distribution Width 13.2 % (11.5-14.5); White Blood Count 15.9 K/mm3 (4.5-10.0)
[2020-01-29 08:20] LABS: Alanine Aminotransferase 35 U/L (4-50); Albumin Level 3.4 g/dL (3.5-5.1); Alkaline Phosphatase 99 U/L (38-126); Anion Gap 9.3 mmol/L (7-16); Aspartate Amino Transferase 23 U/L (17-59); Bilirubin,Total 0.5 mg/dL (0.2-1.3); Blood Urea Nitrogen 9 mg/dL (9-20); Calcium 8.7 mg/dL (8.4-10.2); Carbon Dioxide 28 mmol/L (22-30); Chloride 101 mmol/L (98-107); Estimated CRCL calculation 95 ml/min; Estimated Glomerular Filt Rate > 60; Glucose 87 mg/dL (75-110); Magnesium 2.1 mg/dL (1.6-2.3); Potassium 3.3 mmol/L (3.4-5.0); Sodium 135 mmol/L (137-145)
[2020-01-29] MEDS: lamoTRIgine 100 MG TABLET 200 MG PO ×2 (09:08→16:26)
[2020-01-29] MEDS: predniSONE 5 MG TABLET PO ×3 (09:08→16:26)
[2020-01-29] MEDS: buPROPion HCL XL (24 HR) 150 MG TABCR 300 MG PO (09:08)
--- NOTE | 2020-01-29 10:02 | PM.IMPN ---
Progress Note: A&P Assessment and Plan (1) Unstable burst fracture of T7 vertebra: Code(s): S22.062A - Unstable burst fracture of T7-T8 vertebra, initial encounter for closed fracture Status: Acute Assessment and Plan: Thoracic spine MRI revealed acute vs. subacute burst fracture of T7 with 3/5 loss of height and retropulsion of bone 4 mm into central spinal canal with mild central canal stenosis. Bone marrow enhancement is noted. He has rheumatoid arthritis and is on chronic prednisone therapy. 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 He denies recent trauma but was recently hospitalized 01/16/20-01/21/20 for altered mental status after being found by his family lying on the floor. Per chart review from that hospital stay, the patient reported that he was hurting all over and laid down on the ground due to pain. He was diagnosed with acute metabolic encephalopathy due to acute manic phase from nonadherence to medical therapy, acute renal failure, and rhabdomyolysis. SNF placement was recommended at that time but he was not accepted and the patient eventually decided that he preferred to return home with close family assistance. I called Dr. Cordova who is vice president consulting services with orthopedic surgery and he recommended transfer to a tertiary facility for evaluation by a spine surgeon. [facility] was [facility] to [facility] and the transfer is pending bed placement. He remains on bed rest. Continue analgesics PRN. (2) Dehydration: Code(s): E86.0 - Dehydration Status: Acute Assessment and Plan: Hemoconcentration was appreciated on labs. He was gently rehydrated and is tolerating PO intake well. IV fluids were discontinued. (3) Chronic pain: Qualifiers: Chronic pain type: other chronic pain Qualified Code(s): G89.29 - Other chronic pain Code(s): G89.29 - Other chronic pain Status: Chronic Assessment and Plan: He has acute on chronic back pain secondary to #1. Continue analgesics PRN. He is on bed rest. (4) Abnormal gait: Code(s): R26.9 - Unspecified abnormalities of gait and mobility Status: Acute Assessment and Plan: Secondary to #1. (5) Bipolar disorder: Qualifiers: Active/Remission status: remission status unspecified Qualified Code(s): F31.9 - Bipolar disorder, unspecified Code(s): F31.9 - Bipolar disorder, unspecified Status: Chronic Assessment and Plan: Stable with no acute issues. Continue clonazepam, lamotrigine, and quetiapine. (6) Hypokalemia: Code(s): E87.6 - Hypokalemia Status: Acute Assessment and Plan: Potassium was 3.3 today. Replace with an additional 40mEq of potassium. (7) Leukocytosis: Code(s): D72.829 - Elevated white blood cell count, unspecified Status: Acute Assessment and Plan: He is on chronic prednisone which may cause this. It may also be reactive due to his fracture and pain. His UA had no evidence of infection and CXR has no evidence of consolidation. He has no other symptoms or exam findings to suggest infection. He is afebrile. Plan to continue to monitor CBC daily. (8) Chest pain: Code(s): R07.9 - Chest pain, unspecified Status: Acute Assessment and Plan: The patient reports pain in the thoracic spine which radiates into the chest. I suspect that this pain is due to his acute back pain and is radiating/referred to this region. He has mild palpation in the epigastric region and significant point tenderness to T7. Will begin protonix and check lipase. He has no nausea or vomiting. Will also order STAT troponin and EKG although this pain is very atypical, constant, dull and coorelates with his back pain so I suspect that this is the cause. (9) DVT prophylaxis: Code(s): Z29.9 - Encounter for prophylactic measures, unspecified Status: Acute Assessment and Plan: Will
--- NOTE | 2020-01-29 10:29 | ECG_ITS ---
Measurements Intervals [place] Rate: 89 P: 62 IA: 146 QRS: -48 QRSD: 85 T: 72 QT: 337 QTc: 412 Interpretive Statements SINUS RHYTHM EARLY PRECORDIAL R/S TRANSITION LEFT ANTERIOR FASCICULAR BLOCK ABNORMAL ECG Electronically Signed On 01-29-2020 10:41:16 CDT by Charanjit Leslei D.O.
[2020-01-29 10:51] LABS: CRP 2.6 mg/dL (<1.0)
[2020-01-29 10:56] LABS: Lipase 27 U/L (23-300)
[2020-01-29 11:22] LABS: Troponin I < 0.012 ng/mL (0.000-0.034)
[2020-01-29] MEDS: POTASSIUM CHLORIDE 20 MEQ TABLET 40 MEQ PO (12:34)
[2020-01-29 14:00] VITALS: BP 111/63; PULSE 77; RESP 18; TEMP 36.9; O2SAT 95
[2020-01-29] MEDS: BACLOFEN 10 MG TABLET 20 MG BY MOUTH (15:04)
--- NOTE | 2020-01-29 18:54 | PC.NURSE ---
Transfer to [facility] per ambulance,report given to [facility] [phone].Room 12.
[2020-01-29] MEDS: QUEtiapine FUMARATE 25 MG TABLET PO (20:09)
[2020-01-29] MEDS: ENOXAPARIN 40 MG/0.4 ML SYRINGE SUB-Q (20:09)
--- NOTE | 2020-01-29 22:07 | PC.NURSE ---
2030: report to [facility] and patient transferred to [facility] for surgical eval via stretcher.
== END 2020-01-29 20:30 | disposition short-term general hospital (02) | DRG 552 ==
LOC: ANHED 21:12 → ANH2MED 21:49
PROVIDERS: Physician Assistant; Admitting Provider Internal Medicine; Emergency Provider Emergency Medicine; PCP Family Medicine; Visit Provider Family Medicine
DX: S22.062A Unstable burst fracture of T7-T8 vertebra, initial encounter for closed fracture (principal); G89.29 Other chronic pain; E86.0 Dehydration; E87.6 Hypokalemia; R26.9 Unspecified abnormalities of gait and mobility; M06.9 Rheumatoid arthritis, unspecified; E78.5 Hyperlipidemia, unspecified; D72.829 Elevated white blood cell count, unspecified; G62.9 Polyneuropathy, unspecified; R53.1 Weakness; F31.9 Bipolar disorder, unspecified; F43.10 Post-traumatic stress disorder, unspecified; F41.9 Anxiety disorder, unspecified; Z79.52 Long term (current) use of systemic steroids; Z87.891 Personal history of nicotine dependence
CPT/HCPCS: 36415; 70450; 71045; 72157; 80048; 80053; 81001; 82550; 83690; 83735; 84484; 85025; 85027; 86140; 93005; 96360; 96361; 97162; 97165; 99285; A9270; A9577; G0378; J1650; J2270; J7030; J7120; J7512

== ENCOUNTER → 2020-05-31 09:09 | Outpatient (CLI) | payer MEDICARE, MEDICAID, SELFPAY ==
--- NOTE | ~2020-05-31 | MR_ITS ---
EXAMINATION: MR cervical spine wo con DATE: 05/31/2020 10:06 INDICATION: Cervical radiculopathy. Chronic neck pain. TECHNIQUE: Magnetic resonance imaging (MRI) of the cervical spine was performed without intravenous c ontrast. Sequences included sagittal T2-weighted FSE, sagittal STIR FSE, sagittal T1-weighted FSE, ax ial MERGE, and axial T2-weighted FSE. COMPARISON: Cervical spine MRI 02/08/2019 FINDINGS: There is 2 mm retrolisthesis of C5 on C6 and C6 on C7. There are chronic compressions fract ures of T1-T4 with up to 1/5 loss of height. There is severely decreased disc height at C5-C6 and C6- C7. The spinal cord signal intensity is normal. The following disc levels are specifically discussed: C2-C3: There is a central extrusion. There is no uncovertebral joint osteoarthritis. There is mild bi lateral facet joint osteoarthritis. There is no neural foraminal stenosis. There is mild central adamaris l stenosis. C3-C4: There is a central protrusion. There is no uncovertebral joint osteoarthritis. There is mild r ight and severe left facet joint osteoarthritis. There is no neural foraminal stenosis. There is mild central canal stenosis. C4-C5: The disc does not extend beyond the endplate margin. There is mild left uncovertebral joint os teoarthritis. There is moderate bilateral facet joint osteoarthritis. There is mild left neural agnes inal stenosis. There is no central canal stenosis. C5-C6: The disc is bulging. There is severe bilateral uncovertebral joint osteoarthritis. There is mi ld bilateral facet joint osteoarthritis. There is moderate bilateral neural foraminal stenosis. There is mild central canal stenosis with ventral indentation of the spinal cord. C6-C7: The disc is bulging. There is severe bilateral uncovertebral joint osteoarthritis. There is mi ld right and moderate left facet joint osteoarthritis. There is moderate bilateral neural foraminal s tenosis. There is moderate central canal stenosis with ventral and dorsal indentation of spinal cord. C7-T1: There is a central protrusion. There is no uncovertebral joint osteoarthritis. There is severe bilateral facet joint osteoarthritis. There is mild bilateral neural foraminal stenosis. There is no central canal stenosis. IMPRESSION: 1. Severe cervical spondylosis, worsened from 02/08/2019. Reviewed, dictated and finalized at location A. R SUPPLY ENGINEER
== END ==
DX: M43.12 Spondylolisthesis, cervical region (principal); M47.23 Other spondylosis with radiculopathy, cervicothoracic region; M48.03 Spinal stenosis, cervicothoracic region
CPT/HCPCS: 72141

== ENCOUNTER 2020-10-10 13:03 | Outpatient (CLI) | payer MEDICARE, SELFPAY ==
--- NOTE | ~2020-10-10 | XR_ITS ---
EXAMINATION: XR lumbar spine 2-3V DATE: 10/10/2020 14:28 INDICATION: Lumbar radiculopathy TECHNIQUE: Anteroposterior and lateral views of the lumbar spine, and cone-down lateral view of the l umbosacral junction were obtained. COMPARISON: CT, 01/15/2020 FINDINGS: There are stable compression fractures of the L2 and L5 vertebral bodies. There is unchange d moderate loss of intervertebral disc space height at L3-4. No acute fracture is identified. Bone al ignment is normal. Calcified atherosclerosis is noted. IMPRESSION: 1. Stable compression fractures of L2 and L5 and moderate lumbar spondylosis without acute findings o r significant interval change. Reviewed, dictated and finalized at location A. IMPRESSION: 1. Stable compression fractures of L2 and L5 and moderate lumbar spondylosis wi thout acute findings or significant interval change.
--- NOTE | ~2020-10-10 | XR_ITS ---
EXAMINATION: XR thoracic spine 3V DATE: 10/10/2020 14:28 INDICATION: Thoracic radiculopathy, back pain TECHNIQUE: AP, lateral and lateral swimmer's views of the thoracic spine were obtained. COMPARISON: MRI, 01/28/2020 FINDINGS: There has been interval posterior fusion from T5 through T10. The previously described T7 b urst fracture has undergone vertebroplasty but is otherwise without significant change. No new thorac ic fracture is identified. Bone alignment is normal. The thoracic vertebral body heights are maintain ed with the exception of T7. The visualized portions of the thorax are unremarkable. There is spondyl osis of the lower cervical spine. IMPRESSION: 1. Interval vertebroplasty change of the T7 burst fracture and posterior fusion from T5 through T10 w ithout acute findings. Reviewed, dictated and finalized at location A. IMPRESSION: 1. Interval vertebroplasty change of the T7 burst fracture and posterior fusion from T5 through T10 without acute findings.
--- NOTE | ~2020-10-10 | XR_ITS ---
EXAMINATION: XR knee LT 2V DATE: 10/10/2020 14:28 INDICATION: Left knee pain. TECHNIQUE: 2 views of left knee were obtained. COMPARISON: Left knee radiographs 05/03/2018 FINDINGS: Bone alignment is normal. No fracture. There is mild tricompartmental osteoarthritis charac terized by tiny marginal osteophytes. No knee joint effusion. IMPRESSION: 1. Mild left knee osteoarthritis. Reviewed, dictated and finalized at location A.
--- NOTE | ~2020-10-10 | XR_ITS ---
EXAMINATION:XR_CERV2-3V_CR DATE: 10/10/2020 14:28 INDICATION: Cervical radiculopathy TECHNIQUE: AP, lateral, and odontoid views of the cervical spine are provided. COMPARISON: 04/17/2019 FINDINGS: There are 2 mm of retrolisthesis of C5 on C6. The odontoid is intact. No fracture is identi fied. There is severe loss of intervertebral disc space height at C5-6 and C6-7. The vertebral body h eights are normal. Small degenerative osteophytes project from the anterior endplates of multiple livia tebral bodies. There is moderate facet and uncovertebral joint osteoarthritis of the lower cervical s pine. Prevertebral soft tissues are normal. Partially imaged changes of thoracic fusion procedure are noted. IMPRESSION: 1. Severe spondylosis of the lower cervical spine. Reviewed, dictated and finalized at location A.
--- NOTE | ~2020-10-10 | XR_ITS ---
EXAMINATION: XR knee RT 2V DATE: 10/10/2020 14:28 INDICATION: Right knee pain. TECHNIQUE: 2 views of right knee were obtained. COMPARISON: Right knee radiographs 05/03/2018 FINDINGS: Bone alignment is normal. No fracture. There is mild tricompartmental osteoarthritis charac terized by tiny marginal osteophytes. No knee joint effusion. IMPRESSION: 1. Mild right knee osteoarthritis. Reviewed, dictated and finalized at location A.
== END 2020-10-10 13:04 ==
PROVIDERS: Visit Provider Pain Medicine Interventional Pain Medicine
DX: M17.0 Bilateral primary osteoarthritis of knee (principal); M47.22 Other spondylosis with radiculopathy, cervical region; M47.26 Other spondylosis with radiculopathy, lumbar region
CPT/HCPCS: 72040; 72072; 72100; 73560

== ENCOUNTER → 2021-07-21 10:25 | Outpatient (CLI) | payer MEDICARE, MEDICAID, SELFPAY ==
--- NOTE | ~2021-07-21 | MR_ITS ---
EXAMINATION: MR cervical spine wo con EXAM DATE: 07/21/2021 12:28 INDICATION: Cervical disc degenerative disease cervical ddd, chronic neck pain. angelina arm/hand pain, pt fall 2019. TECHNIQUE: Multi-sequential, multiplanar MR images of the cervical spine were obtained without contra st. Axial T2, axial T2 MERGE sequence. Sagittal T1, T2, T2 fat saturation images also obtained. Com parison is made to prior examination from 05/31/2020. FINDINGS: There is moderate to severe disc disease at C5-6 and 6-7. There is 2 to 3 mm retrolisthesi s at these 2 levels and 2 to 3 mm anterolisthesis C7 on T1. Mild anterior wedging of the upper thorac ic vertebral bodies without bone marrow edema indicating these are chronic. The spinal cord signal in tensity and intrinsic morphology is normal. Cervicomedullary junction is normal in appearance. There are no suspicious marrow signal abnormalities. Partially imaged thoracic fusion hardware. Paraspinal soft tissue is unremarkable. Level by level evaluation: C2-C3: There is a minimal diffuse disc bulge. Uncovertebral joint arthropathy: Mild left. Facet joint arthropathy: Mild bilateral. Neural foraminal stenosis: No stenosis. Central canal stenosis: No stenosis. C3-C4: There is a minimal diffuse disc bulge. Uncovertebral joint arthropathy: Mild bilateral. Facet joint arthropathy: Moderate left, mild to moderate right. Neural foraminal stenosis: Mild to moderate left. Central canal stenosis: No stenosis. C4-C5: There is a minimal diffuse disc bulge. Uncovertebral joint arthropathy: Mild to moderate left, mild right. Facet joint arthropathy: Moderate bilateral. Neural foraminal stenosis: Moderate left, mild right. Central canal stenosis: No stenosis. C5-C6: There is a mild to moderate diffuse disc bulge. Uncovertebral joint arthropathy: Moderate to severe bilateral. Facet joint arthropathy: Moderate bilateral . Neural foraminal stenosis: Moderate to severe bilateral. Central canal stenosis: Mild. C6-C7: There is a mild to moderate diffuse disc bulge. Uncovertebral joint arthropathy: Moderate to severe right, moderate left. Facet joint arthropathy: Mild to moderate bilateral. Neural foraminal stenosis: Moderate to severe right, moderate left. Central canal stenosis: Mild. C7-T1: There is a mild diffuse disc bulge. Uncovertebral joint arthropathy: Moderate left, mild to moderate right. Facet joint arthropathy: Mild to moderate bilateral. Neural foraminal stenosis: Mild left. Central canal stenosis: No stenosis. Mild progression in spondylosis compared to 2020. IMPRESSION: Moderate to severe lower cervical spondylosis. Reviewed, dictated and finalized at location G. 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
== END ==
DX: M50.30 Other cervical disc degeneration, unspecified cervical region (principal); M47.892 Other spondylosis, cervical region
CPT/HCPCS: 72141

== ENCOUNTER → 2021-10-02 13:24 | Outpatient (CLI) | payer MEDICARE, MEDICAID, SELFPAY ==
--- NOTE | ~2021-10-02 | MR_ITS ---
EXAMINATION: MR lumbar spine wo con DATE: 10/02/2021 13:55 INDICATION: Other intervertebral disc degeneration, lumbar region. TECHNIQUE: Magnetic resonance imaging (MRI) of the lumbar spine was performed without intravenous con trast. Sequences included sagittal T2-weighted FSE, sagittal T2-weighted FS FSE, sagittal T1-weighted FSE, and axial T2-weighted FSE. COMPARISON: Lumbar spine radiographs 04/15/2019 FINDINGS: There is 9 degrees dextrocurvature of lumbar spine. There is a chronic burst fracture of L2 with 2/5 loss of height. There is severely decreased disc height at L3-L4 with endplate remodeling. The distal spinal cord signal intensity is normal. The conus medullaris is at L1-L2. The following di sc levels are specifically discussed: L1-L2: There is a central protrusion. There is no facet joint osteoarthritis. There is no neural fora giuliana stenosis. There is mild central canal stenosis. L2-L3: The disc is bulging and has an annular fissure. There is moderate right and mild left facet ermelinda int osteoarthritis. There is mild right and moderate left neural foraminal stenosis. There is mild ce ntral canal stenosis. L3-L4: The disc is bulging with superimposed central and left foraminal extrusion. There is moderate bilateral facet joint osteoarthritis. There is mild right and moderate left neural foraminal stenosis . There is moderate central canal stenosis. L4-L5: The disc is bulging and has an annular fissure. There is mild bilateral facet joint osteoarthr itis. There is moderate right and mild left neural foraminal stenosis. There is mild central canal st enosis. L5-S1: The disc does not extend beyond the endplate margin. There is severe bilateral facet joint ost eoarthritis. There is mild bilateral neural foraminal stenosis. There is no central canal stenosis. IMPRESSION: 1. Severe lumbar spondylosis with improved extrusion at L3-L4, Reviewed, dictated and finalized at location A.
== END ==
DX: M51.36 Other intervertebral disc degeneration, lumbar region (principal); M47.816 Spondylosis without myelopathy or radiculopathy, lumbar region
CPT/HCPCS: 72148

== ENCOUNTER 2021-10-28 14:14 | Emergency (ER) | payer MEDICARE, MEDICAID, SELFPAY ==
--- NOTE | ~2021-10-28 | XR_ITS ---
XR thoracic spine 3V DATE: 10/28/2021 16:21 INDICATION: Chronic back pain. Prior falls. TECHNIQUE: AP, lateral and swimmer views COMPARISON: 10/20/2020 thoracic spine FINDINGS: Mild levoscoliosis of the thoracic spine. Diffuse osteopenia. Bilateral pedicle screws and rods extending from T5 to T10. Vertebroplasty and vertebroplasty at T7. Mild likely chronic anterior wedge compression fracture deformity of T2 and T4. No paraspinal soft tissue thickening. IMPRESSION: Vertebroplasty at and vertebroplasty at T7 Posterior fusion by pedicle screws and rods at T5-T10 Mild compression fracture deformities of T2 and T4; T2 compression fracture deformity is new since Diffuse osteopenia Reviewed, dictated and finalized at location A. IMPRESSION: Vertebroplasty at and vertebroplasty at T7 Posterior fusion by pedicle screws and rods at T5-T10 Mild compression fracture deformities of T2 and T4; T2 compression fracture def ormity is new since 10/20/2020 Diffuse osteopenia
--- NOTE | ~2021-10-28 | XR_ITS ---
EXAMINATION: XR lumbar spine 2-3V DATE: 10/28/2021 16:22 INDICATION: Lumbar spine pain post injury with palpable pop while lifting a window TECHNIQUE: Anteroposterior and lateral views of the lumbar spine, and cone-down lateral view of the l umbosacral junction were obtained. COMPARISON: Lumbar spine MR dated 10/02/2021 FINDINGS: 10 degrees lumbar dextroscoliosis. Likely acute L1 compression fracture with 20% anterior vertebral b giovana height loss and subtle buckling of the cortex along the cephalad aspect of the anterior wall of t he vertebral body, both findings new since the recent prior MRI. Chronic L2 burst fracture with 40% a nterior vertebral body height loss and 2-3 mm retropulsion of the inferior aspect of the posterior wa ll resulting in mild central canal stenosis. 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 Unchanged mild anterior wedging at T11 and m ild inferior endplate compression impression at L5. Moderate to severe left-sided predominant disc he ight loss at L3-L4. Remaining disc heights are preserved. Severe bilateral lower lumbar facet osteoar thritis. Partially visualized bilateral vertical pearl and pedicle screw fixation at T9 and T10 which e xtends beyond the cephalad margin of the [id number]. Atherosclerotic abdominal aorta. IMPRESSION: 1. Likely acute/subacute L1 compression fracture with 20% anterior vertebral body height loss since . 2. Mild lumbar dextrocurvature with severe lumbar spondylosis. See separate MRI report dated 10/02/2021 for level by level analysis. 3. Additional chronic L2 burst fracture and mild T11 and L5 compression fractures. Reviewed, dictated and finalized at location B. IMPRESSION: 1. Likely acute/subacute L1 compression fracture with 20% anterior vertebral hank dy height loss since 10/21/2021. 2. Mild lumbar dextrocurvature with severe lumbar spondylosis. See separate MRI report dated 10/02/2021 for level by level analysis. 3. Additional chronic L2 burst fracture and mild T11 and L5 compression fractur es.
[2021-10-28 14:18] VITALS: BP 137/96; PULSE 95; RESP 20; TEMP 36.8; O2SAT 100
[2021-10-28] MEDS: KETOROLAC 30 MG/ML VIAL (*BKC) IM (16:31)
[2021-10-28] MEDS: diazePAM INJ (*CRX) 10 MG/2 ML SYRINGE 5 MG IM (16:31)
--- NOTE | 2021-10-28 17:30 | ED.BACK ---
HPI - Back Pain/Injury General Chief Complaint: Back Pain/Injury Stated Complaint: back pain Time Seen by Provider: 10/28/21 15:40 Source: patient Mode of arrival: ambulatory Limitations: no limitations History of Present Illness HPI Narrative: Pt is a 61 y/o male, PMHx of chronic back pain, prior compression fractures with subsequent spinal fusion in 2019, RA, bipolar disorder and PTSD, presents to ED via POV with acute on chronic low back pain after he reached over his sink today to open a window with both upper extremities extended in front of him. He felt a pop in the back at that time and he has had pain since that time. His pain management provider left the area and his fur buyer has taken over prescribing his pain medications. He notes they recently switched his [place] to Hydrocodone extended release after his liver enzymes were elevated after completing treatment for an oral fungal infection; which he notes is controlling his pain moderately until today. He additionally takes Baclofen and Clonazepam for muscle spasms and anxiety. His back pain is severe today, increases with movement and spasms are reported. He was scheduled to have a thoracic MRI today after he completed a lumbar MRI on 10/21/2021. He has an appointment with a new neurosurgeon on Tuesday next week, Dr Cagle at [facility]. He denies bowel or bladder incontinence or saddle anesthesia. No other modifying factors are endorsed. MD elicited complaint: back pain Pertinent past history: prior back pain and other (denies recent falls or blunt trauma but feels he might have broken a bone lifting the window today) Onset (ago): hour(s) Timing: constant Severity: severe Pain scale (0-10): 10 Quality: sharp and stabbing Location: lumbar spine Radiation: none Exacerbating factors: movement, sitting upright, walking and lifting Relieving factors: sitting upright Context: while lifting Associated symptoms: denies other symptoms Treatments prior to arrival: other medications (refer to HPI) Work related injury: No Related Data Home Medications Medication Instructions Recorded Confirmed bupropion HCl 300 mg PO DAILY 01/16/20 10/12/21 hydrocodone-acetaminophen 1 tablet PO Q4-6H PRN MDD 5 01/16/20 10/12/21 lamotrigine 200 mg PO BID 01/16/20 10/12/21 baclofen 20 mg BYMOUTH TID PRN 01/17/20 10/12/21 clonazepam 1 mg PO TID PRN 01/18/20 10/12/21 prednisone 5 mg tablet 12.5 mg PO TID tablet 10/09/21 10/12/21 Allergies Allergy/AdvReac Type Severity Reaction Status Date / Time No Known Allergies Allergy Unknown Verified 10/28/21 15:42 Review of Systems Review of Systems: All systems reviewed & are unremarkable except as noted in HPI and below Musculoskeletal: Musculoskeletal: Reports no additional musculoskeletal complaints and Reports as per HPI PMFSH Past Medical History Medical History Bipolar disorder Chronic back pain Chronic, continuous use of opioids Compression fracture of L5 vertebra Facial trauma Hyperlipidemia L1 vertebral fracture April 2019 Peripheral neuropathy PTSD (post-traumatic stress disorder) Rheumatoid arthritis Screen for colon cancer Screening for prostate cancer Surgical History Surgical History History of facial surgery History of herniorrhaphy Family History Family History Mother Dementia Acute myocardial infarction Sibling Diabetes mellitus Brother and sister Social History Social History Smoking status: Never smoker Smoking end date: 07/04/90 Alcohol intake: never Alcohol use details: Occasional use of alcohol per prior H&P. Substance use: current Substance use type: marijuana Gender identity (if verbalized by the patient): Male Sexual Orientation (if Verbalized by the Patient)
[2021-10-28 18:49] VITALS: BP 147/92; PULSE 87; RESP 18; O2SAT 99
== END 2021-10-28 18:54 | disposition home or self-care (01) ==
PROVIDERS: Emergency Provider Nurse Practitioner Family; PCP Family Medicine
DX: S29.012A Strain of muscle and tendon of back wall of thorax, initial encounter (principal); M48.56XA Collapsed vertebra, not elsewhere classified, lumbar region, initial encounter for fracture; M54.9 Dorsalgia, unspecified; G89.29 Other chronic pain; E78.5 Hyperlipidemia, unspecified; M06.9 Rheumatoid arthritis, unspecified; G62.9 Polyneuropathy, unspecified; Z87.891 Personal history of nicotine dependence; F31.9 Bipolar disorder, unspecified; F43.10 Post-traumatic stress disorder, unspecified; Z98.1 Arthrodesis status; M85.88 Other specified disorders of bone density and structure, other site; X50.9XXA Other and unspecified overexertion or strenuous movements or postures, initial encounter
CPT/HCPCS: 72072; 72100; 96372; 99284; J1885; J3360

== ENCOUNTER 2021-10-31 15:53 | Emergency (ER) | payer MEDICARE, MEDICAID, SELFPAY ==
--- NOTE | ~2021-10-31 | CT_ITS ---
EXAMINATION: CT thoracic lumbar wo con DATE: 10/31/2021 17:15 INDICATION: Worsening mid and lower back pain. TECHNIQUE: Computed tomography (CT) of the thoracic and lumbar spine was performed without intravenou s contrast. Automated exposure control and iterative reconstruction technique were employed. The dose -length product was 1417.51 mGy-cm. COMPARISON: Thoracic and lumbar x-rays 10/28/2021. CT abdomen pelvis with lumbar spine 01/15/2020. FINDINGS: Thoracic spine: Posterior fusion hardware spanning T5-T10. No hardware fracture. No perihardware luce ncy. T7 compression fracture with vertebroplasty cement, unchanged. Multilevel mild endplate deformit ies, appear stable given interval differences in technique. No acute fracture. Lumbar spine: Degenerative disc disease and facet arthropathy. Mild superior endplate deformity at L1, new since the prior studies. Stable L2 and L5 compression def ormities. No acute fracture. IMPRESSION: 1. Likely acute progression of the mild L1 superior endplate deformity. 2. No other acute fracture or traumatic malalignment in the thoracic or lumbar spine. 3. Uncomplicated posterior thoracic fusion. Reviewed, dictated and finalized at location K.
[2021-10-31 16:02] VITALS: BP 139/99; PULSE 97; RESP 16; TEMP 36.3; O2SAT 100
--- NOTE | 2021-10-31 16:40 | ED.BACK ---
HPI - Back Pain/Injury General Chief Complaint: Back Pain/Injury Stated Complaint: back pain Time Seen by Provider: 10/31/21 16:15 History of Present Illness HPI Narrative: pt comes back was here 10/28 for same mid and lower back pain. pt has long h/o back pain, says has NS appt on Tuesday and long h/of liver enzyme issues so pain management/rheumatology doc adjusting chornic pain meds. pt also jsut treated for thrush to mouth and better. pt says opening window and felt pop mid bakc and worsening pain and says can';t move as well, says has chronic numbness in hands/legs but thinks it's worse. didn't drive here never does and no incontinence/abd pain/f/uri/cp/sob/abd pain or other issues. Related Data Home Medications Medication Instructions Recorded Confirmed bupropion HCl 300 mg PO DAILY 01/16/20 10/12/21 hydrocodone-acetaminophen 1 tablet PO Q4-6H PRN MDD 5 01/16/20 10/12/21 lamotrigine 200 mg PO BID 01/16/20 10/12/21 baclofen 20 mg BYMOUTH TID PRN 01/17/20 10/12/21 clonazepam 1 mg PO TID PRN 01/18/20 10/12/21 prednisone 5 mg tablet 12.5 mg PO TID tablet 10/09/21 10/12/21 Allergies Allergy/AdvReac Type Severity Reaction Status Date / Time No Known Allergies Allergy Unknown Verified 10/28/21 15:42 Review of Systems Review of Systems: CONSTITUTIONAL: Denies fever, chills, or sweats. EYES: Denies visual changes, redness, or discharge. ENT: Denies rhinorrhea, congestion, sore throat, or otalgia. CARDIOVASCULAR: Denies chest pain, palpitations, or edema. RESPIRATORY: Denies cough or dyspnea. GASTROINTESTINAL: Denies abdominal pain, nausea, vomiting, or diarrhea. GENITOURINARY: Denies dysuria or hematuria. SKIN: Denies rash or itching. MUSCULOSKELETAL: Denies joint pain, or myalgia. has worsening acute on chronic back pain NEUROLOGIC: Denies headache, numbness, or weakness. PSYCHIATRIC: Denies anxiety or depression. [facility] Past Medical History Medical History Bipolar disorder Chronic back pain Chronic, continuous use of opioids Compression fracture of L5 vertebra Facial trauma Hyperlipidemia L1 vertebral fracture April 2019 Peripheral neuropathy PTSD (post-traumatic stress disorder) Rheumatoid arthritis Screen for colon cancer Screening for prostate cancer Surgical History Surgical History History of facial surgery History of herniorrhaphy Family History Family History Mother Dementia Acute myocardial infarction Sibling Diabetes mellitus Brother and sister Social History Social History Smoking status: Never smoker Smoking end date: 07/04/90 Alcohol intake: never Alcohol use details: Occasional use of alcohol per prior H&P. Substance use: current Substance use type: marijuana Gender identity (if verbalized by the patient): Male Sexual Orientation (if Verbalized by the Patient): Straight or Heterosexual Spiritual care concerns: No Exam Narrative: APPEARANCE: Well appearing, no pain in distress, well-nourished. Head normocephalic atraumtaic. EYES: PERRLA/EOMI, conjunctivae very clear. NOSE: Normal no drainage EARS:TMS clear Piero Torres, with good light reflex. THROAT: Pharynx clear, no exudate. NECK: Supple. No adenopathy, no masses. RESPIRATORY: Airway patent, repsirations nonlabored. Clear to auscultation bilaterally, no rales, rhonchi, wheezing. CARDIOVASCULAR: Regular rate and rhythm without murmurs rubs or gallops. ABDOMINAL: Soft, nontender, nondistended, no hepatosplenomegally MUSCULOSKELETAl: Moves all extremities. Strenght/ROM intact, No edema, No calf tenderness. tned with rom more then palpation back, old thoracic scar NEURO: Alert. Cranial nerves II through XII intact. Good coordination no saddle paresthesias SKIN:: Warm, dry. Normal Color clamy PSYCHI
[2021-10-31] MEDS: fentaNYL CITRATE INJ (*CRX) 100 MCG/2 ML VIAL IV PUSH (17:00)
[2021-10-31] MEDS: ONDANSETRON INJ 4 MG/2 ML VIAL IV PUSH (17:00)
[2021-10-31 17:04] LABS: Basophils Absolute Auto 0.1 K/mm3 (0.0-0.1); Basophils Percent Auto 0.7 % (0.2-1.2); Eosinophils Absolute Auto 0.2 K/mm3 (0-0.3); Eosinophils Percent Auto 1.4 % (0-4.4); Hematocrit 46.6 % (42.0-52.0); Hemoglobin 15.5 g/dL (14.0-18.0); Immature Granulocyte Absolute 0.06 K/mm3 (0.00-0.031); Immature Granulocyte Percent A 0.6 % (0-0.5); Lymphocytes Absolute Auto 3.07 K/mm3 (0.9-3.2); Lymphocytes Percent Auto 28.4 % (18.3-44.2); Mean Corpuscular HGB Conc 33.3 g/dl (32-36); Mean Corpuscular Hemoglobin 32.7 pg (26-34); Mean Corpuscular Volume 98.3 fl (80-100); Mean Platelet Volume 10.2 fl (7.4-10.4); Monocytes Percent Auto 8.9 % (2.6-8.5); Neutrophils Absolute Auto 6.5 K/mm3 (1.3-6.7); Platelet Count Result 229 k/mm3 (150-375); Red Blood Count 4.74 M/mm3 (4.6-6.20); Red Cell Distribution Width 12.1 % (11.5-14.5); White Blood Count 10.8 K/mm3 (4.5-10.0)
[2021-10-31 17:14] LABS: Alanine Aminotransferase 31 U/L (4-50); Albumin Level 3.9 g/dL (3.5-5.1); Alkaline Phosphatase 56 U/L (38-126); Anion Gap 4 mmol/L (8-16); Aspartate Amino Transferase 32 U/L (17-59); Bilirubin,Total 0.5 mg/dL (0.2-1.3); Blood Urea Nitrogen 13 mg/dL (9-20); Calcium 9.1 mg/dL (8.4-10.2); Carbon Dioxide 31 mmol/L (22-30); Chloride 107 mmol/L (98-107); Estimated Glomerular Filt Rate > 60; Glucose 86 mg/dL (65-110); Potassium 3.8 mmol/L (3.4-5.0); Sodium 142 mmol/L (137-145)
[2021-10-31] MEDS: HYDROmorphone HCL INJ (*CRX) 1 MG/ML SYR 2 MG IM (18:12)
--- NOTE | 2021-10-31 19:14 | PC.NURSE ---
patient very angry, requesting to speak with the doctor regarding not having any narcotic medications given upon discharge. 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
--- NOTE | 2021-10-31 19:32 | PC.NURSE ---
Addendum entered by Lexii Barba RN 10/31/21 19:33: this RN; No final set of vitals obtained. Pt to [facility] without assist and to family member waiting in [address]. Original Note: Pt's voice raised and visibly upset with ED MD Davis. IV removed by t6h
== END 2021-10-31 19:36 | disposition home or self-care (01) ==
PROVIDERS: Emergency Provider Emergency Medicine; PCP Family Medicine
DX: S32.018A Other fracture of first lumbar vertebra, initial encounter for closed fracture (principal); G89.29 Other chronic pain; E78.5 Hyperlipidemia, unspecified; F31.9 Bipolar disorder, unspecified; F43.10 Post-traumatic stress disorder, unspecified; M06.9 Rheumatoid arthritis, unspecified; Z87.891 Personal history of nicotine dependence; X50.9XXA Other and unspecified overexertion or strenuous movements or postures, initial encounter
CPT/HCPCS: 36415; 72128; 72131; 80053; 85025; 96372; 96374; 96375; 99284; J1170; J2405; J3010

== ENCOUNTER 2021-11-01 04:23 | Emergency (ER) | payer MEDICARE, MEDICAID, SELFPAY ==
[2021-11-01 04:29] VITALS: BP 112/93; PULSE 100; RESP 16; O2SAT 97
--- NOTE | 2021-11-01 05:30 | ED.BACK ---
HPI - Back Pain/Injury General Chief Complaint: Back Pain/Injury Stated Complaint: Back pain since tue, been here 3 times this week Time Seen by Provider: 11/01/21 04:43 Source: patient History of Present Illness HPI Narrative: Patient presents with low back pain. Patient was seen several hours ago for the same complaint had imaging and was discharged home he was upset with his encounter and is continued to have pain to return to the ER for evaluation if symptoms again changes from his evaluation several hours ago he continues to be in pain. He is is unable to take Tylenol due to elevated liver enzymes reports he is unable to take NSAIDs because it upsets his stomach. Says he is attempted baclofen which does not help. He reports his environmental science instructor usually (pain medication or the pharmacy messed up his recent hydrocodone prescription and did not give him enough. He also has follow-up with the neurosurgeon next week but is concerned he can be able to make it to that appointment he also is concerned about seeing the neurosurgeon as he is unsure if he will be able obtain his most recent imaging studies and bring it to that appointment. His pain is achy/sharp constant over the entirety of his back he also reports intermittent paresthesias in all of his extremities denies any bowel or bladder incontinence Related Data Home Medications Medication Instructions Recorded Confirmed bupropion HCl 300 mg PO DAILY 01/16/20 10/12/21 hydrocodone-acetaminophen 1 tablet PO Q4-6H PRN MDD 5 01/16/20 10/12/21 lamotrigine 200 mg PO BID 01/16/20 10/12/21 baclofen 20 mg BYMOUTH TID PRN 01/17/20 10/12/21 clonazepam 1 mg PO TID PRN 01/18/20 10/12/21 prednisone 5 mg tablet 12.5 mg PO TID tablet 10/09/21 10/12/21 Allergies Allergy/AdvReac Type Severity Reaction Status Date / Time No Known Allergies Allergy Unknown Verified 11/01/21 04:35 Review of Systems Review of Systems: CONSTITUTIONAL: Denies fever, chills, or sweats. EYES: Denies visual changes, redness, or discharge. ENT: Denies rhinorrhea, congestion, sore throat, or otalgia. CARDIOVASCULAR: Denies chest pain, palpitations, or edema. RESPIRATORY: Denies cough or dyspnea. GASTROINTESTINAL: Denies abdominal pain, nausea, vomiting, or diarrhea. GENITOURINARY: Denies dysuria or hematuria. SKIN: Denies rash or itching. MUSCULOSKELETAL: Denies back pain, joint pain, or myalgia. NEUROLOGIC: Denies headache, numbness, dizziness, or weakness. PSYCHIATRIC: Denies anxiety or depression. All systems reviewed & are unremarkable except as noted in HPI and below PMFSH Past Medical History Medical History Bipolar disorder Chronic back pain Chronic, continuous use of opioids Compression fracture of L5 vertebra Facial trauma Hyperlipidemia L1 vertebral fracture April 2019 Peripheral neuropathy PTSD (post-traumatic stress disorder) Rheumatoid arthritis Screen for colon cancer Screening for prostate cancer Surgical History Surgical History History of facial surgery History of herniorrhaphy Family History Family History Mother Dementia Acute myocardial infarction Sibling Diabetes mellitus Brother and sister Social History Social History Smoking status: Never smoker Smoking end date: 07/04/90 Alcohol intake: never Alcohol use details: Occasional use of alcohol per prior H&P. Substance use: current Substance use type: marijuana Gender identity (if verbalized by the patient): Male Sexual Orientation (if Verbalized by the Patient): Straight or Heterosexual Spiritual care concerns: No Exam Narrative: GENERAL: Well-appearing, well-nourished, and in no acute distress. HEAD: Normocephalic, atraumatic. EYES: PERRLA and EOMI. ENT: Nares clear, no rhinor
[2021-11-01 06:07] VITALS: BP 104/65; PULSE 79; RESP 16; O2SAT 97
== END 2021-11-01 05:30 | disposition home or self-care (01) ==
PROVIDERS: Emergency Provider Emergency Medicine; PCP Family Medicine
DX: M54.9 Dorsalgia, unspecified (principal); F31.9 Bipolar disorder, unspecified; G89.29 Other chronic pain; E78.5 Hyperlipidemia, unspecified; G62.9 Polyneuropathy, unspecified; M06.9 Rheumatoid arthritis, unspecified
CPT/HCPCS: 99281

== ENCOUNTER → 2021-11-06 13:51 | Outpatient (CLI) | payer MEDICARE, MEDICAID, SELFPAY ==
--- NOTE | ~2021-11-06 | MR_ITS ---
EXAMINATION: MR thoracic spine wo con DATE: 11/06/2021 14:37 INDICATION: Thoracic back pain. TECHNIQUE: Magnetic resonance imaging (MRI) of the thoracic spine was performed without intravenous c ontrast. Sagittal localizer T1-weighted FSE of the cervical spine was obtained. Thoracic spine sequen alie included sagittal T2-weighted FSE, sagittal T1-weighted FSE, sagittal T2-weighted FS FSE, and axi al T2-weighted FSE. COMPARISON: Thoracic spine MRI 01/28/2020, lumbar spine MRI 10/02/2021 FINDINGS: There is 8 degrees levocurvature of upper thoracic spine. There are chronic compression fra ctures of T1-T5 vertebral bodies. There is a chronic burst fracture of T7 with 3/5 loss of height and retropulsion of bone 5 mm into central spinal canal with mild central canal stenosis. There is a bur st fracture of superior endplate of L1 with 1/5 loss of height, low signal fracture line, bone marrow edema, retropulsion of bone 3 mm into central spinal canal, and mild central canal stenosis. There a re changes of posterior fusion procedure from T5 to T10 with pedicle screws in T5, T6, T9, and T10. A t T1-T2, there is a central protrusion. There is multilevel facet joint osteoarthritis, severe bilate rally at T11-T12. On the right, there is mild neural foraminal stenosis at T3-T4 and T7-T8. On the le ft, there is mild neural foraminal stenosis at T6-T7. The spinal cord signal intensity is normal. IMPRESSION: 1. Acute L1 burst fracture, new from 10/02/2021. 2. Posterior fusion procedure from T5 to T10. 3. Mild thoracic spondylosis. Reviewed, dictated and finalized at location A.
== END ==
PROVIDERS: PCP Family Medicine
DX: M47.894 Other spondylosis, thoracic region (principal); S32.011A Stable burst fracture of first lumbar vertebra, initial encounter for closed fracture; X58.XXXA Exposure to other specified factors, initial encounter; Z98.1 Arthrodesis status
CPT/HCPCS: 72146

== ENCOUNTER 2021-11-21 11:55 | Emergency (ER) | payer MEDICARE, MEDICAID, SELFPAY ==
[2021-11-21] VITALS (26 sets, daily range): BP systolic 125–150; BP diastolic 78–101; PULSE 73; RESP 16; O2SAT 92–99
--- NOTE | ~2021-11-21 | CT_ITS ---
EXAMINATION: CT lumbar spine wo con DATE: 11/21/2021 13:48 INDICATION: Low back pain post fall TECHNIQUE: Computed tomography (CT) of the lumbar spine was performed without intravenous contrast. A utomated exposure control and iterative reconstruction technique were employed. The dose-length produ ct was 477.18 mGy-cm. COMPARISON: Lumbar spine CT dated 10/31/2021 and lumbar spine radiographs dated 10/28/2021 and MRI date d 10/02/2021 FINDINGS: Alignment is normal. Stable appearance of chronic L2 burst fracture and L5 inferior endplate compress ion fracture. There is been interval progression in now 30% anterior vertebral body height loss of a subacute L1 burst fracture, previously with 20% anterior vertebral body height loss. The fracture occ urred in the interval between 10/02/2021 and . There has also been increase in now 4 mm retropulsion resulting in mild to moderate central canal stenosis at this level. Prominent Schmorl's node along th e superior endplate of L4. No acute fractures identified. Moderate to severe left-sided predominant d isc height loss at L3-L4. Mild right-sided disc height loss at L4-L5. Vacuum phenomena at T12-L1. The re are multiple disc bulges most notably at L3-L4 where there is severe central canal stenosis. Multi level mild to moderate central canal and bilateral neural foraminal stenosis. Severe facet osteoarthr itis on the right at L5-S1. Otherwise mild to moderate lumbar facet osteoarthritis. The prior MRI reggie ed 10/02/2021 for more detailed level by level analysis of the degenerative changes. Paravertebral soft tissues are unremarkable. IMPRESSION: 1. Interval progression of now 30% anterior vertebral body height loss and 4 mm retropulsion with mil d to moderate central canal stenosis so she with a subacute L1 burst fracture. 2. Stable appearance of chronic L2 burst fracture and L5 compression fracture. No other acute osseous abnormality. 3. Severe lumbar spondylosis. See MRI dated 10/02/2021 for detailed level by level analysis. Reviewed, dictated and finalized at location A. IMPRESSION: 1. Interval progression of now 30% anterior vertebral body height loss and 4 mm retropulsion with mild to moderate central canal stenosis so she with a subacu te L1 burst fracture. 2. Stable appearance of chronic L2 burst fracture and L5 compression fracture. No other acute osseous abnormality. 3. Severe lumbar spondylosis. See MRI dated 10/02/2021 for detailed level by abhishek garcia.
--- NOTE | ~2021-11-21 | CT_ITS ---
EXAMINATION: CT brain wo con DATE: 11/21/2021 13:48 INDICATION: Fall with head injury and loss of consciousness. TECHNIQUE: Computed tomography (CT) of the head was performed without intravenous contrast. Sagittal and coronal reconstructions were performed. The mA was adjusted according to patient size. Iterative reconstruction technique was employed. The dose-length product was 477.18 mGy-cm. COMPARISON: head CT dated 01/28/2020 FINDINGS: No fracture. No acute intracranial hemorrhage, acute infarction or abnormal extra axial fluid collect ion. There is mild scattered white matter hypoattenuation consistent with chronic small vessel ischem ic disease. Symmetric prominence of the sulci and ventricles consistent with mild age-appropriate dif fuse cerebral volume loss. No mass/mass effect. Changes of right intraocular lens replacement. The or bits and mastoid air cells are normal. Mild mucosal thickening the right maxillary sinus. IMPRESSION: 1. No fracture or acute intracranial process. 2. Chronic age-related changes including mild diffuse volume loss and mild scattered white matter hyp oattenuation consistent with chronic small vessel ischemic disease. Reviewed, dictated and finalized at location A. IMPRESSION: 1. No fracture or acute intracranial process. 2. Chronic age-related changes including mild diffuse volume loss and mild scat tered white matter hypoattenuation consistent with chronic small vessel ischemi c disease.
--- NOTE | ~2021-11-21 | XR_ITS ---
EXAMINATION: [id number] DATE: 11/21/2021 13:57 INDICATION: Right rib pain post fall TECHNIQUE: A frontal inspiratory view of the chest and 6 views of the right ribs were obtained. COMPARISON: Thoracic spine CT dated 10/31/2021 FINDINGS: No rib fractures identified. Lungs are clear with no focal airspace opacities, pulmonary edema, pleur al effusion or pneumothorax. Cardiomediastinal silhouette is normal. Chronic T7 burst fracture with c hange of prior vertebroplasty. This spanned by a posterior spinal fusion with bilateral vertical rods with pedicle screw at T5, T6, T9 and T10. Interval progression of vertebral body height loss at a smith bacute L1 compression fracture. See CT lumbar spine report dated 11/21/2021 for further detail. IMPRESSION: 1. No rib fracture or acute cardiopulmonary disease. Reviewed, dictated and finalized at location A.
--- NOTE | ~2021-11-21 | CT_ITS ---
EXAMINATION: CT cervical spine wo con DATE: 11/21/2021 13:48 INDICATION: Neck pain post fall with head injury TECHNIQUE: Computed tomography (CT) of the cervical spine was performed without intravenous contrast. Automated exposure control and iterative reconstruction technique were employed. The dose-length pro duct was 477.18 mGy-cm. COMPARISON: Thoracic spine MRI dated 11/06/2021 FINDINGS: 1-2 mm retrolisthesis C5 on C6 and C6 on C7 and 1 to 2 mm anterolisthesis C7 on T1. Cervical vertebra l body heights are normal. Chronic mild anterior wedging of both T1 and T2. No acute fracture. Modera te osteoarthritis at the atlantoaxial articulation. Severe disc height loss with degenerative endplat e changes and severe uncovertebral osteoarthritis at C5-C6 and C6-C7. Small posterior endplate osteop hytes resulting in mild central canal stenosis at both of these levels. Severe bilateral facet osteoa rthritis at C7-T1. Additional multilevel facet osteoarthritis in the more cephalad cervical spine, mi ld on the right and moderate on the left. Mild to moderate bilateral neural foraminal stenosis at C5- C6 and C6-C7. Mild neural from stenosis on the left at C4-C5. Atherosclerotic coronary artery calcifi cation is at the bilateral carotid bifurcations. Cervical soft tissues are otherwise unremarkable. Mi ld atelectasis likely related to expiratory phase of imaging at the bilateral apices of the lungs. IMPRESSION: 1. Severe lower cervical spondylosis. 2. Chronic compression fracture with mild anterior wedging at T1 and T2. No acute osseous abnormality . Reviewed, dictated and finalized at location A. IMPRESSION: 1. Severe lower cervical spondylosis. 2. Chronic compression fracture with mild anterior wedging at T1 and T2. No acu te osseous abnormality.
--- NOTE | ~2021-11-21 | CT_ITS ---
EXAMINATION: CT abdomen pelvis w con DATE: 11/21/2021 18:24 INDICATION: lower abdominal pain TECHNIQUE: Computed tomography (CT) of the abdomen and pelvis was performed with 75 mL Omnipaque- 300 intravenous contrast. Automated exposure control and iterative reconstruction technique were employe d. The dose-length product was 979.11 mGy-cm. COMPARISON: 01/15/2020. FINDINGS: Lower thorax: Bibasilar atelectasis. Moderate coronary artery calcifications. Liver: Normal. Biliary/Gallbladder: Gallbladder is normal. No bile duct dilation. Pancreas: No mass or duct dilation. Spleen: Normal. Adrenals:No mass. Kidneys: Bilateral hypodensities too small to characterize, but likely represent cysts. No other mass es. No hydronephrosis. GI tract: No small or large bowel dilation. Normal appendix. Mesentery/Peritoneum: No ascites, mass, or free air. Retroperitoneum: No mass. Atherosclerotic abdominal calcifications. Pelvis: Marked bladder distention, likely on the basis of chronic outlet obstruction from a mildly en larged prostate. Soft Tissues: Soft tissues and body wall unremarkable. Bones: Moderate height loss and superior endplate deformity at L1, new since the prior study. IMPRESSION: No acute abdominopelvic process. L1 compression fracture of uncertain age, correlate with pain/point tenderness. Reviewed, dictated and finalized at [facility]. IMPRESSION: No acute abdominopelvic process. L1 compression fracture of uncertain age, duane elate with pain/point tenderness.
--- NOTE | 2021-11-21 12:56 | ECG_ITS ---
Measurements Intervals Canones Rate: 65 P: -11 MD: 140 QRS: -47 QRSD: 91 T: 55 QT: 396 QTc: 413 Interpretive Statements SINUS RHYTHM RSR' IN V1 OR V2, CONSIDER RIGHT VENTRICULAR HYPERTROPHY OR RIGHT VCD LEFT ANTERIOR FASCICULAR BLOCK ABNORMAL ECG Electronically Signed On 11-21-2021 17:07:36 CDT by Charanjit Leslie D.O.
--- NOTE | 2021-11-21 12:57 | PC.NURSE ---
Dr. Hodge at bedside to assess pt.
--- NOTE | 2021-11-21 13:02 | ED.FALL ---
HPI - Fall General Chief Complaint: Fall Stated Complaint: glf, back pain Time Seen by Provider: 11/21/21 12:08 Source: patient and RN notes reviewed Mode of arrival: ambulatory Limitations: no limitations History of Present Illness HPI Narrative: This is a 61 year old male with history of chronic pain syndrome, L1 compression fracture, back surgery who presents from home for evaluation of head in jury, worsening back pain and right rib pain. Patient states he was diagnosed with L1 Compression fracture at the end of October. He states he is a chronic pain patient for 13 years but his pain specialist fired him in April. 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 He states his PCP told him they can not help him with his pain. He is following Dr. Dami Levy (spine surgeon) for his back. He states he was scheduled for kyphoplasty last week but it was cancelled. He states he has been out of his pain medication for 1 week. He states his back pain is getting worse. He thinks he fell out of bed last night. He woke up on the floor with right rib pain and worsening low back pain. He also states he kept waking up in different rooms without his wheelchair and he is unsure of how he got to those rooms. He denies limb numbness or tingling. He states he felt like he was walking like a drunk person. Related Data Home Medications Medication Instructions Recorded Confirmed bupropion HCl 300 mg PO DAILY 01/16/20 10/12/21 hydrocodone-acetaminophen 1 tablet PO Q4-6H PRN MDD 5 01/16/20 10/12/21 lamotrigine 200 mg PO BID 01/16/20 10/12/21 clonazepam 1 mg PO TID PRN 01/18/20 10/12/21 baclofen 20 mg tablet 20 mg PO TID PRN tablet 11/06/21 Allergies Allergy/AdvReac Type Severity Reaction Status Date / Time No Known Allergies Allergy Unknown Verified 11/06/21 07:41 Review of Systems Review of Systems: All systems reviewed & are unremarkable except as noted in HPI and below PMFSH Past Medical History Medical History (Updated 11/21/21 @ 21:55 by Tonya Hodge MD) Bipolar disorder BMI 26.0-26.9,adult Chronic back pain Chronic, continuous use of opioids Compression fracture of L5 vertebra Facial trauma Hyperlipidemia L1 vertebral fracture April 2019 Lumbar spondylosis Peripheral neuropathy PTSD (post-traumatic stress disorder) Rheumatoid arthritis Screen for colon cancer Screening for prostate cancer Surgical History Surgical History History of facial surgery History of herniorrhaphy Family History Family History Mother Dementia Acute myocardial infarction Sibling Diabetes mellitus Brother and sister Social History Social History (Updated 11/06/21 @ 09:21 by Tomás Landers MD) Smoking end date: 03/23/91 Alcohol intake: former Alcohol use details: Drank while in College Substance use: current Substance use type: marijuana Gender identity (if verbalized by the patient): Male Sexual Orientation (if Verbalized by the Patient): Straight or Heterosexual Spiritual care concerns: No Exam Const: General: alert and ill appearing Nutritional Appearance: obese Orientation/consciousness: patient oriented x3 HENMT: Head: normocephalic and atraumatic Eyes: Pupils: Equal, round and reactive pupils present EOM: EOMs intact bilaterally Chest: Chest palpation & inspection: tenderness rib (right lateral) Resp: Effort & Inspection: normal respiratory effort and no retractions Auscultation: clear to auscultation bilaterally Cardio: Rate: regular rate Rhythm: regular rhythm Heart sounds: no murmurs GI: GI Palp: Yes Soft to palpation, Yes Tenderness to palpation present (GI) (TTP and right abdominal wall ecchymosis), No Guarding due to palpation present (GI), No Rigid due to palpati
[2021-11-21] MEDS: HYDROmorphone HCL INJ (*CRX) 1 MG/ML SYR IV PUSH ×3 (13:17→18:24)
[2021-11-21] MEDS: ONDANSETRON INJ 4 MG/2 ML VIAL IV PUSH (13:17)
--- NOTE | 2021-11-21 13:29 | PC.NURSE ---
Patient off unit to CT.
[2021-11-21 13:32] LABS: Basophils Absolute Auto 0.1 K/mm3 (0.0-0.1); Basophils Percent Auto 0.4 % (0.2-1.2); Eosinophils Percent Auto 0.3 % (0-4.4); Hematocrit 41.9 % (42.0-52.0); Hemoglobin 14.2 g/dL (14.0-18.0); Immature Granulocyte Absolute 0.09 K/mm3 (0.00-0.031); Immature Granulocyte Percent A 0.8 % (0-0.5); Lymphocytes Absolute Auto 2.35 K/mm3 (0.9-3.2); Lymphocytes Percent Auto 19.7 % (18.3-44.2); Mean Corpuscular HGB Conc 33.9 g/dl (32-36); Mean Corpuscular Hemoglobin 32.9 pg (26-34); Mean Platelet Volume 10.2 fl (7.4-10.4); Monocytes Absolute Auto 1.1 K/mm3 (0.1-0.6); Monocytes Percent Auto 9.6 % (2.6-8.5); Neutrophils Absolute Auto 8.2 K/mm3 (1.3-6.7); Neutrophils Percent Auto 69.2 % (45.5-73.1); Platelet Count Result 227 k/mm3 (150-375); Red Blood Count 4.32 M/mm3 (4.6-6.20); Red Cell Distribution Width 12.3 % (11.5-14.5); White Blood Count 11.9 K/mm3 (4.5-10.0)
[2021-11-21 13:43] LABS: Alanine Aminotransferase 101 U/L (6-50); Albumin Level 4.1 g/dL (3.5-5.1); Alkaline Phosphatase 104 U/L (38-126); Anion Gap 5 mmol/L (8-16); Aspartate Amino Transferase 73 U/L (17-59); Bilirubin,Total 1.2 mg/dL (0.2-1.3); Blood Urea Nitrogen 11 mg/dL (9-20); Calcium 9.8 mg/dL (8.4-10.2); Carbon Dioxide 24 mmol/L (22-30); Chloride 107 mmol/L (98-107); Estimated CRCL calculation 80 ml/min; Estimated Glomerular Filt Rate > 60; Glucose 97 mg/dL (65-110); Potassium 3.6 mmol/L (3.4-5.0); Sodium 136 mmol/L (137-145)
[2021-11-21 13:50] LABS: INR 1.1; Prothrombin Time 13.4 Seconds (11.1-14.7)
[2021-11-21 13:51] LABS: Partial Thromboplastin Time 25.7 SECONDS (22.3-36.8)
--- NOTE | 2021-11-21 15:05 | PC.NURSE ---
Dr. Hodge back at bedside to reassess pt.
[2021-11-21 15:46] LABS: Creatine Kinase 465 U/L (55-170)
--- NOTE | 2021-11-21 18:07 | PC.NURSE ---
Patient off unit to CT.
== END 2021-11-21 18:45 | disposition short-term general hospital (02) ==
LOC: ANHED 12:11
PROVIDERS: Emergency Provider General Practice; PCP Family Medicine
DX: S30.1XXA Contusion of abdominal wall, initial encounter (principal); S32.011A Stable burst fracture of first lumbar vertebra, initial encounter for closed fracture; R07.81 Pleurodynia; S09.90XA Unspecified injury of head, initial encounter; E78.5 Hyperlipidemia, unspecified; M47.816 Spondylosis without myelopathy or radiculopathy, lumbar region; G89.29 Other chronic pain; M06.9 Rheumatoid arthritis, unspecified; G62.9 Polyneuropathy, unspecified; F31.9 Bipolar disorder, unspecified; F43.10 Post-traumatic stress disorder, unspecified; Z87.891 Personal history of nicotine dependence; M47.812 Spondylosis without myelopathy or radiculopathy, cervical region; W06.XXXA Fall from bed, initial encounter
CPT/HCPCS: 36415; 70450; 71101; 72125; 72131; 74177; 80053; 82550; 85025; 85610; 85730; 93005; 96374; 96375; 96376; 99285; J1170; J2405; Q9967